=== PATIENT | female | born 1985 | race Caucasian/White ===

== ENCOUNTER 2018-10-15 08:20 | Emergency (ER) | payer MEDICAID ==
[~2018-10-15] VITALS: Ht 167.6 cm; Wt 99.8 kg
[2018-10-15 08:20] VITALS: BP_SYST 131
--- NOTE | 2018-10-15 08:20 | NUR ---
Patient triaged and placed in waiting room. VSS and patient appears in no acute distress at this time. Accompanied by SELF, awaiting available bed, and MD notified of need for MSE.
--- NOTE | 2018-10-15 09:17 | NUR ---
BROUGHT BACK TO BED #2 AND REPORT GIVEN TO LORI
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
--- NOTE | 2018-10-15 09:38 | NUR ---
ER Dr. GARRIDO at bedside examining patient.
[2018-10-15 10:05] VITALS: BP_SYST 131
--- NOTE | 2018-10-15 10:05 | NUR ---
Patient given written and verbal discharge instructions and verbalizes understanding. ER MD discussed with patient the results and treatment provided. Patient in stable condition. ID arm band removed. NO Rx given. Patient educated on pain management and to follow up with PMD. Pain Scale 6/10 TOLERABLE. Opportunity for questions provided and answered. Medication side effect fact sheet provided.
== END 2018-10-15 10:05 | disposition home or self-care (01) ==
LOC: SED 08:20
DX: S29.011A Strain of muscle and tendon of front wall of thorax, initial encounter (principal); X58.XXXA Exposure to other specified factors, initial encounter; Y93.89 Activity, other specified; Y92.89 Other specified places as the place of occurrence of the external cause; Y99.8 Other external cause status
CPT/HCPCS: 71100; 99283

== ENCOUNTER 2018-11-18 14:29 | Emergency (ER) | payer MEDICAID ==
[~2018-11-18] VITALS: Ht 167.6 cm; Wt 100.7 kg
[2018-11-18 14:34] VITALS: BP_SYST 130
[2018-11-18] MEDS ORDERED: IBUPROFEN 400 MG TABLET PO ONE (16:15)
[2018-11-18 17:17] VITALS: BP_SYST 124
[2018-11-20 09:41] LABS: CHLAMYDIA TRACHOMATIS NAA Negative (Negative); NEISSERIA GONORRHOEAE NAA Negative (Negative)
== END 2018-11-18 17:17 | disposition home or self-care (01) ==
LOC: SED 14:29
DX: N76.0 Acute vaginitis (principal); B96.89 Other specified bacterial agents as the cause of diseases classified elsewhere; E11.9 Type 2 diabetes mellitus without complications; J45.909 Unspecified asthma, uncomplicated; Z91.018 Allergy to other foods
CPT/HCPCS: 81002; 81025; 87210-TC; 87491; 87591; 99283

== ENCOUNTER 2018-11-19 20:43 | Emergency (ER) | payer MEDICAID ==
[~2018-11-19] VITALS: Ht 167.6 cm; Wt 99.8 kg
[2018-11-19 20:50] VITALS: BP_SYST 123
[2018-11-19] MEDS ORDERED: NACL 0.9% 1,000 ML IV ONE (21:24)
[2018-11-19] MEDS ORDERED: ONDANSETRON HCL 4 MG/2 ML VIAL IVP ONE (21:30)
[2018-11-19] MEDS ORDERED: KETOROLAC TROMETHAMINE 30 MG VIAL IVP ONE (21:30)
[2018-11-19 21:50] LABS: BILIRUBIN,URINE NEGATIVE (NEGATIVE); CLARITY/URINE HAZY (CLEAR); COLOR,URINE YELLOW (YELLOW); GLUCOSE,URINE 3+ (NEGATIVE); KETONES,URINE NEGATIVE (NEGATIVE); LEUKOCYTE ESTERASE ,URINE NEGATIVE (NEGATIVE); NITRITE, URINE NEGATIVE (NEGATIVE); PROTEIN URINE TRACE (NEGATIVE)
[2018-11-19 22:02] LABS: BASOPHILS % (AUTO) 0.3 % (0.0-2.0); EOSINOPHILS # (AUTO) 0.1 K/uL (0.0-0.4); EOSINOPHILS % (AUTO) 1.6 % (0.0-4.0); HEMATOCRIT 40.6 % (36-48); HEMOGLOBIN 13.5 g/dL (12.0-16.0); LYMPHOCYTES # (AUTO) 1.4 K/uL (1.0-5.5); LYMPHOCYTES % (AUTO) 28.6 % (20.5-51.5); MEAN CORPUSCULAR HEMOGLOBIN 29 pg (27-31); MEAN CORPUSCULAR HGB CONC 33 % (32-36); MEAN CORPUSCULAR VOLUME 86 fL (79.0-98.0); MONOCYTES # (AUTO) 0.4 K/uL (0.0-1.0); MONOCYTES % (AUTO) 7.2 % (1.7-9.3); NEUTROPHILS # (AUTO) 3.1 K/uL (1.8-7.7); NEUTROPHILS % (AUTO) 62.3 % (40.0-70.0); PLATELET COUNT (AUTO) 169 K/uL (130-430); RED BLOOD CELL COUNT(AUTO) 4.74 MIL/uL (4.2-6.2); RED CELL DISTRIBUTION WIDTH 13.5 % (9.0-15.0)
[2018-11-19 22:06] LABS: ALBUMIN 3.3 g/dL (3.4-4.8); CALCIUM 9.1 mg/dL (8.4-11.0); CREATININE 0.77 mg/dL (0.55-1.30); POTASSIUM 3.9 mmol/L (3.5-5.1); TOTAL BILIRUBIN 0.3 mg/dL (0.0-1.0)
[2018-11-19 22:31] LABS: BLOOD, URINE TRACE (NEGATIVE)
[2018-11-19 22:32] LABS: BACTERIA,URINE FEW /HPF (None Seen); MUCUS,URINE None Seen /LPF (None Seen); RBC,URINE 0-3 /HPF (0-3)
[2018-11-19] MEDS ORDERED: DIPHENHYDRAMINE INJ 50 MG/ML VIAL IVP ONE (23:00)
[2018-11-19] MEDS ORDERED: MORPHINE 4 MG/ML INJ. SYRINGE IVP ONE (23:00)
[2018-11-20 01:15] VITALS: BP_SYST 110
== END 2018-11-20 01:15 | disposition home or self-care (01) ==
LOC: SED 20:43
DX: R10.84 Generalized abdominal pain (principal); R11.2 Nausea with vomiting, unspecified; R19.7 Diarrhea, unspecified; J45.909 Unspecified asthma, uncomplicated; E11.9 Type 2 diabetes mellitus without complications; Z91.018 Allergy to other foods; Z90.49 Acquired absence of other specified parts of digestive tract; Z90.89 Acquired absence of other organs
CPT/HCPCS: 36415; 74176; 80053; 81000; 81025; 83690; 85025; 96361; 96374; 96375; 99284; J1200; J1885; J2270; J2405; J7030

== ENCOUNTER 2019-02-13 16:56 | Emergency (ER) | payer MEDICAID ==
[~2019-02-13] VITALS: Ht 167.6 cm; Wt 96.2 kg
[2019-02-13 16:56] VITALS: BP_SYST 127
--- NOTE | 2019-02-13 16:56 | NUR ---
BROUGHT BACK TO BED #8 AND TRIAGED. REPORT GIVEN TO LORI
--- NOTE | 2019-02-13 17:02 | NUR ---
PATIENT CAME IN COMPLAINING OF RED SPOTS ON TOUNGE SINCE LAST SATURDAY. PATIENT COMPLAINING OF 9/10 PAIN. PATIENT STATES SHE CANT EAT ANYTHING BECAUSE OF PAIN. PATIENT ABLE TO DRINK COLD WATER THOUGH AND IS ON HER 4TH JUG OF WATER. PATIENT DENIES SOB, NAUSEA, AND VOMITING. PATIENT IS ALERT AND ORIENTED X4.
--- NOTE | 2019-02-13 17:32 | NUR ---
ER Dr. STEVE at bedside examining patient.
[2019-02-13 18:23] VITALS: BP_SYST 127
--- NOTE | 2019-02-13 18:23 | NUR ---
Patient given written and verbal discharge instructions and verbalizes understanding. ER MD discussed with patient the results and treatment provided. Patient in stable condition. ID arm band removed. Rx of MOTRIN given. Patient educated on pain management and to follow up with PMD. Pain Scale 4/10 TOLERABLE. Opportunity for questions provided and answered. Medication side effect fact sheet provided.
== END 2019-02-13 18:23 | disposition home or self-care (01) ==
LOC: SED 16:56
DX: K12.1 Other forms of stomatitis (principal); J45.909 Unspecified asthma, uncomplicated; E11.9 Type 2 diabetes mellitus without complications; Z91.018 Allergy to other foods
CPT/HCPCS: 82962; 99282

== ENCOUNTER 2019-03-07 06:02 | Emergency (ER) | payer MEDICAID ==
[~2019-03-07] VITALS: Ht 167.6 cm; Wt 96.2 kg
[2019-03-07 06:05] VITALS: BP_SYST 147
--- NOTE | 2019-03-07 06:15 | NUR ---
Patient to ER bed 05 to gown for evaluation. Side rails up.
--- NOTE | 2019-03-07 06:20 | NUR ---
patient arrived AOx4 with c/o abd pain x 2 days. patient was instructed to go to urgent care two days ago but she did not have a sitter for her children. patient stated she took tylenol x 200mg around 7pm last night. patient states it worked well for pain. patient is able to ambulate well without assit. patient has no pain upon palpation. no abd distention at this time. patient is able to pass gas and urine without difficulty at this time. no other complaint or injury at this time.
[2019-03-07] MEDS ORDERED: NACL 0.9% 1,000 ML IV ONE (06:36)
--- NOTE | 2019-03-07 06:38 | NUR ---
ER at bedside examining patient.
[2019-03-07] MEDS ORDERED: ONDANSETRON HCL 4 MG/2 ML VIAL IVP ONE (06:45)
[2019-03-07] MEDS ORDERED: MORPHINE 4 MG/ML INJ. SYRINGE IVP ONE (06:45)
--- NOTE | 2019-03-07 07:00 | NUR ---
# 18 gauge angiocath placed to RAC. Use of asceptic technique. Opsite placed over site. Blood return noted. Blood for lab drawn from site. Flushed with 10 cc of normal saline. No evidence of infiltration noted. Patient tolerated well.
[2019-03-07 07:07] LABS: BASOPHILS % (AUTO) 0.6 % (0.0-2.0); EOSINOPHILS # (AUTO) 0.1 K/uL (0.0-0.4); EOSINOPHILS % (AUTO) 1.5 % (0.0-4.0); HEMOGLOBIN 14.4 g/dL (12.0-16.0); LYMPHOCYTES # (AUTO) 2.8 K/uL (1.0-5.5); LYMPHOCYTES % (AUTO) 42.6 % (20.5-51.5); MEAN CORPUSCULAR HEMOGLOBIN 29 pg (27-31); MEAN CORPUSCULAR HGB CONC 33 % (32-36); MEAN CORPUSCULAR VOLUME 86 fL (79.0-98.0); MONOCYTES # (AUTO) 0.4 K/uL (0.0-1.0); MONOCYTES % (AUTO) 5.7 % (1.7-9.3); NEUTROPHILS # (AUTO) 3.3 K/uL (1.8-7.7); NEUTROPHILS % (AUTO) 49.6 % (40.0-70.0); PLATELET COUNT (AUTO) 189 K/uL (130-430); RED BLOOD CELL COUNT(AUTO) 5.01 MIL/uL (4.2-6.2); RED CELL DISTRIBUTION WIDTH 13.6 % (9.0-15.0); WHITE BLOOD COUNT (AUTO) 6.6 K/uL (4.8-10.8)
--- NOTE | 2019-03-07 07:10 | NUR ---
Medicated per MD orders. IVF infusing with no s/s of infiltration at this time. Will cont to monitor
--- NOTE | 2019-03-07 07:15 | NUR ---
Report received from Yassine Mcleod. Pt states that she has been having diarrhea, last episode was at 0200 today. Pt also arrives with abd pain. No c/o vomitting at the moment. Pt is afebrile. Will continue to monitor.
[2019-03-07 07:19] LABS: BILIRUBIN,URINE NEGATIVE (NEGATIVE); BLOOD, URINE NEGATIVE (NEGATIVE); CLARITY/URINE CLEAR (CLEAR); COLOR,URINE YELLOW (YELLOW); GLUCOSE,URINE 3+ (NEGATIVE); KETONES,URINE NEGATIVE (NEGATIVE); LEUKOCYTE ESTERASE ,URINE NEGATIVE (NEGATIVE); NITRITE, URINE NEGATIVE (NEGATIVE); PH,URINE 5.5 (5.0-8.0); PROTEIN URINE 2+ (NEGATIVE); UROBILINOGEN,URINE 0.2 (0.2-1.0)
[2019-03-07 07:23] LABS: CALCIUM 9.3 mg/dL (8.4-11.0); CREATININE 0.76 mg/dL (0.55-1.30); POTASSIUM 4.1 mmol/L (3.5-5.1)
[2019-03-07 07:28] LABS: ALBUMIN 3.5 g/dL (3.4-4.8); TOTAL BILIRUBIN 0.5 mg/dL (0.0-1.0)
[2019-03-07 07:35] LABS: BACTERIA,URINE FEW /HPF (None Seen); RBC,URINE 0-3 /HPF (0-3)
[2019-03-07 07:36] LABS: MUCUS,URINE 1+ /LPF (None Seen)
--- NOTE | 2019-03-07 08:24 | NUR ---
Tracy redmond in [facility] - 03/07/19 at 0851 by [email or web address] pt is currently in CT scan.
--- NOTE | 2019-03-07 08:24 | NUR ---
pt is currently in .
--- NOTE | 2019-03-07 08:48 | NUR ---
Pt returned from US.
--- NOTE | 2019-03-07 09:00 | NUR ---
pt is going to US again.
--- NOTE | 2019-03-07 09:12 | NUR ---
pt returned from US.
[2019-03-07] MEDS ORDERED: PANTOPRAZOLE SODIUM 40 MG/VIAL (PROTONIX) IVP ONE (09:30)
[2019-03-07] MEDS ORDERED: METOCLOPRAMIDE HCL 10 MG/2 ML VIAL IVP ONE (09:30)
[2019-03-07] MEDS ORDERED: METOCLOPRAMIDE HCL 10 MG/2 ML VIAL ONE (09:36)
[2019-03-07 09:46] VITALS: BP_SYST 147
--- NOTE | 2019-03-07 09:48 | NUR ---
Patient given written and verbal discharge instructions and verbalizes understanding. ER MD discussed with patient the results and treatment provided. Patient in stable condition. ID arm band removed. IV catheter removed intact and dressing applied, no active bleeding. Rx of Zofran 4mg and Prilosec 20mg given. Patient educated on pain management and to follow up with PMD. Pain Scale 3/10.Opportunity for questions provided and answered. Medication side effect fact sheet provided.
== END 2019-03-07 09:48 | disposition home or self-care (01) ==
LOC: SED 06:02
DX: R10.13 Epigastric pain (principal); E11.9 Type 2 diabetes mellitus without complications; J45.909 Unspecified asthma, uncomplicated; Z91.018 Allergy to other foods
CPT/HCPCS: 36415; 76700; 80053; 81000; 81025; 83690; 85025; 87086; 96361; 96374; 96375; 99284; C9113; J2270; J2405; J2765; J7030

== ENCOUNTER 2019-05-03 20:17 | Emergency (ER) | payer MEDICAID ==
[~2019-05-03] VITALS: Ht 167.6 cm; Wt 90.7 kg
[2019-05-03 21:18] VITALS: BP_SYST 121
[2019-05-03] MEDS ORDERED: METF1000 PO (21:46)
--- NOTE | 2019-05-04 01:30 | NUR ---
Pt called back x 3, no answer
--- NOTE | 2019-05-04 01:30 | NUR ---
Patient left without being seen. No further treatment provided. ER MD aware
== END 2019-05-04 01:30 | disposition left against medical advice (07) ==
LOC: SED 20:17
DX: L02.413 Cutaneous abscess of right upper limb (principal); Z53.21 Procedure and treatment not carried out due to patient leaving prior to being seen by health care provider

== ENCOUNTER 2019-05-04 17:37 | Emergency (ER) | payer MEDICAID ==
[~2019-05-04] VITALS: Ht 167.6 cm; Wt 90.7 kg
[~2019-05-04 17:37] MED LIST: METF1000 PO
[2019-05-04 18:01] VITALS: BP_SYST 126
--- NOTE | 2019-05-04 18:40 | NUR ---
Patient to ER bed 06 to gown for evaluation. Side rails up.
--- NOTE | 2019-05-04 18:40 | NUR ---
STALIN Troncoso (PA) at bedside examining patient.
--- NOTE | 2019-05-04 18:42 | NUR ---
Patient arrived in the ED c/o pain, swelling and redness on the right shoulder, draining abscess noted that started a week ago. Patient is a&o x4, respirations even and unlabored, denied any respiratory distress at this time. VS WNL, able to speak in full sentences. INstructed to notify ED staff if symptoms worsen while waiting to be seen. Patient verbalized understanding.
--- NOTE | 2019-05-04 18:51 | NUR ---
Patient given written and verbal discharge instructions and verbalizes understanding. ER MD discussed with patient the results and treatment provided. Patient in stable condition. ID arm band removed. Rx of Bactrim, Keflex and Tylenol given. Patient educated on pain management and to follow up with PMD. Pain Scale 10/10. Opportunity for questions provided and answered. Medication side effect fact sheet provided.
[2019-05-04 18:52] VITALS: BP_SYST 126
== END 2019-05-04 18:52 | disposition home or self-care (01) ==
LOC: SED 17:37
DX: L03.113 Cellulitis of right upper limb (principal); E11.9 Type 2 diabetes mellitus without complications; J45.909 Unspecified asthma, uncomplicated; Z91.018 Allergy to other foods; Z79.899 Other long term (current) drug therapy
CPT/HCPCS: 82962; 99283

== ENCOUNTER 2019-05-23 14:36 | Emergency (ER) | payer MEDICAID ==
[~2019-05-23] VITALS: Ht 167.6 cm; Wt 90.7 kg
[2019-05-23 14:55] VITALS: BP_SYST 119
--- NOTE | 2019-05-23 15:00 | NUR ---
Patient to ER bed 04 for evaluation. Side rails up.
--- NOTE | 2019-05-23 15:10 | NUR ---
Patient arrived via POV, AAOx4, and ambulatory with steady gait. Patient c/c of rectal bleeding x2 for 1 hour. Patient states bright red blood, and present with wiping also. Patient states no history of rectal bleeding. Patient states she has regular bowel movements, and no constipation. Patient states no rectal penetration noted. Patient states she has left distal knee pain that she would like to get checked out, and an insect bite on right shoulder. Patient calm and cooperative. Will continue to follow up and monitor.
--- NOTE | 2019-05-23 15:13 | NUR ---
ER at bedside examining patient.
[2019-05-23 16:00] VITALS: BP_SYST 119
[2019-05-23 16:04] LABS: BASOPHILS # (AUTO) 0.1 K/uL (0.0-0.2); BASOPHILS % (AUTO) 0.5 % (0.0-2.0); EOSINOPHILS # (AUTO) 0.1 K/uL (0.0-0.4); EOSINOPHILS % (AUTO) 1.4 % (0.0-4.0); HEMATOCRIT 39.2 % (36-48); HEMOGLOBIN 13.3 g/dL (12.0-16.0); LYMPHOCYTES # (AUTO) 3.7 K/uL (1.0-5.5); LYMPHOCYTES % (AUTO) 39.4 % (20.5-51.5); MEAN CORPUSCULAR HEMOGLOBIN 29 pg (27-31); MEAN CORPUSCULAR HGB CONC 34 % (32-36); MEAN CORPUSCULAR VOLUME 86 fL (79.0-98.0); MONOCYTES # (AUTO) 0.5 K/uL (0.0-1.0); MONOCYTES % (AUTO) 4.9 % (1.7-9.3); NEUTROPHILS # (AUTO) 5.1 K/uL (1.8-7.7); NEUTROPHILS % (AUTO) 53.8 % (40.0-70.0); PLATELET COUNT (AUTO) 186 K/uL (130-430); RED BLOOD CELL COUNT(AUTO) 4.56 MIL/uL (4.2-6.2); RED CELL DISTRIBUTION WIDTH 13.5 % (9.0-15.0); WHITE BLOOD COUNT (AUTO) 9.5 K/uL (4.8-10.8)
[2019-05-23 16:13] LABS: CALCIUM 9.6 mg/dL (8.4-11.0); CREATININE 0.73 mg/dL (0.55-1.30); POTASSIUM 4.1 mmol/L (3.5-5.1)
[2019-05-23 16:19] LABS: ALBUMIN 3.5 g/dL (3.4-4.8); TOTAL BILIRUBIN 0.2 mg/dL (0.0-1.0)
--- NOTE | 2019-05-23 17:00 | NUR ---
Patient given written and verbal discharge instructions and verbalizes understanding. ER MD discussed with patient the results and treatment provided. Patient in stable condition. ID arm band removed. Rx of Anusol HC suppositories given. Patient educated on pain management and to follow up with PMD. Pain Scale 2/10. Opportunity for questions provided and answered. Medication side effect fact sheet provided.
== END 2019-05-23 17:00 | disposition home or self-care (01) ==
LOC: SED 14:36
DX: K64.4 Residual hemorrhoidal skin tags (principal); J45.909 Unspecified asthma, uncomplicated; E11.9 Type 2 diabetes mellitus without complications; Z91.018 Allergy to other foods; Z79.84 Long term (current) use of oral hypoglycemic drugs; Z90.49 Acquired absence of other specified parts of digestive tract
CPT/HCPCS: 36415; 80053; 83690-TC; 85025; 99283

== ENCOUNTER 2019-07-26 18:11 | Emergency (ER) | payer MEDICAID ==
[~2019-07-26] VITALS: Ht 167.6 cm; Wt 95.3 kg
[2019-07-26 18:27] VITALS: BP_SYST 130
--- NOTE | 2019-07-26 18:32 | NUR ---
Patient to ER bed 2 to gown for evaluation. Side rails up.
--- NOTE | 2019-07-26 18:35 | NUR ---
pt present to ED c/o asthma exacerbation.
--- NOTE | 2019-07-26 18:36 | NUR ---
ER at bedside examining patient.
[2019-07-26] MEDS ORDERED: IPRATROPIUM BROM 0.5 MG/2.5 ML VIAL.NEB (ATROVENT) INH ONE (18:45)
[2019-07-26] MEDS ORDERED: methylPREDNISolone SOD SUCC/PF 62.5 MG/ML VIAL IVP ONE (18:45)
[2019-07-26] MEDS ORDERED: ALBUTEROL SULFATE 0.083% 2.5 MG/3 ML VIAL.NEB INH ONE (18:45)
--- NOTE | 2019-07-26 19:30 | NUR ---
Patient given written and verbal discharge instructions and verbalizes understanding. ER MD Marcelino discussed with patient the results and treatment provided. Patient in stable condition. ID arm band removed. Rx of prednisone, zithromax, and albuterol given. Patient educated on pain management and to follow up with PMD. Pain Scale 0/10. Opportunity for questions provided and answered. Medication side effect fact sheet provided.
[2019-07-26 19:49] VITALS: BP_SYST 128
== END 2019-07-26 19:30 | disposition home or self-care (01) ==
LOC: SED 18:11
DX: J45.901 Unspecified asthma with (acute) exacerbation (principal); E11.9 Type 2 diabetes mellitus without complications; Z91.018 Allergy to other foods
CPT/HCPCS: 94640; 96374; 99283; J2930; J7613

== ENCOUNTER 2019-07-28 18:34 | Emergency (ER) | payer MEDICAID ==
[~2019-07-28] VITALS: Ht 167.6 cm; Wt 95.3 kg
[2019-07-28 19:34] VITALS: BP_SYST 121
--- NOTE | 2019-07-28 20:20 | NUR ---
Patient to ER bed 08 for evaluation. Side rails up.
[2019-07-28 20:21] LABS: BASOPHILS % (AUTO) 0.3 % (0.0-2.0); EOSINOPHILS # (AUTO) 0.1 K/uL (0.0-0.4); EOSINOPHILS % (AUTO) 0.4 % (0.0-4.0); HEMATOCRIT 43.2 % (36-48); HEMOGLOBIN 14.2 g/dL (12.0-16.0); LYMPHOCYTES # (AUTO) 4.7 K/uL (1.0-5.5); MEAN CORPUSCULAR HEMOGLOBIN 28 pg (27-31); MEAN CORPUSCULAR HGB CONC 33 % (32-36); MEAN CORPUSCULAR VOLUME 86 fL (79.0-98.0); MONOCYTES # (AUTO) 0.7 K/uL (0.0-1.0); MONOCYTES % (AUTO) 5.2 % (1.7-9.3); NEUTROPHILS # (AUTO) 7.6 K/uL (1.8-7.7); NEUTROPHILS % (AUTO) 58.1 % (40.0-70.0); PLATELET COUNT (AUTO) 221 K/uL (130-430); RED BLOOD CELL COUNT(AUTO) 5.03 MIL/uL (4.2-6.2); RED CELL DISTRIBUTION WIDTH 13.3 % (9.0-15.0); WHITE BLOOD COUNT (AUTO) 13.1 K/uL (4.8-10.8)
--- NOTE | 2019-07-28 20:21 | NUR ---
Pt AAOx4 ambulated into ED c/o diarrhea and vomiting x 2 days ith sore throat. Denies SOB/blurred vision/CP. Skin pink dry and warm, breathing even and unlabored. No other injuries/complaints per pt/noted. Will continue to monitor.
[2019-07-28 20:22] LABS: CALCIUM 9.1 mg/dL (8.4-11.0); CREATININE 0.69 mg/dL (0.55-1.30); POTASSIUM 3.9 mmol/L (3.5-5.1)
--- NOTE | 2019-07-28 20:22 | NUR ---
ER Dr. Marcelino at bedside examining patient.
[2019-07-28 20:33] LABS: ALBUMIN 3.7 g/dL (3.4-4.8); TOTAL BILIRUBIN 0.2 mg/dL (0.0-1.0)
[2019-07-28] MEDS ORDERED: NACL 0.9% 1,000 ML IV ONE (20:34)
[2019-07-28] MEDS ORDERED: ONDANSETRON HCL 4 MG/2 ML VIAL IVP ONE (20:45)
[2019-07-28] MEDS ORDERED: NS 1000 ML IV.SOLN IV ONE (20:45)
[2019-07-28 21:06] LABS: AMYLASE 16 U/L (0-100); LIPASE 161 U/L (73-393)
[2019-07-28 21:10] LABS: PROTHROMBIN TIME 9.9 SECS (9.5-12.5)
[2019-07-28 22:01] LABS: BILIRUBIN,URINE NEGATIVE (NEGATIVE); BLOOD, URINE NEGATIVE (NEGATIVE); COLOR,URINE YELLOW (YELLOW); GLUCOSE,URINE 3+ (NEGATIVE); KETONES,URINE NEGATIVE (NEGATIVE); LEUKOCYTE ESTERASE ,URINE NEGATIVE (NEGATIVE); NITRITE, URINE POSITIVE (NEGATIVE); PH,URINE 5.5 (5.0-8.0); PROTEIN URINE 1+ (NEGATIVE); UROBILINOGEN,URINE 0.2 (0.2-1.0)
[2019-07-28 22:18] LABS: CLARITY/URINE HAZY (CLEAR)
--- NOTE | 2019-07-28 22:20 | NUR ---
Patient given written and verbal discharge instructions and verbalizes understanding. ER MD Marcelino discussed with patient the results and treatment provided. Patient in stable condition. ID arm band removed. IV catheter removed intact and dressing applied, no active bleeding. Rx of Lomotil, Zofran, Tylenol given. Patient educated on pain management and to follow up with PMD. Pain Scale 0. Opportunity for questions provided and answered. Medication side effect fact sheet provided.
[2019-07-28 22:21] VITALS: BP_SYST 114
[2019-07-28 22:24] LABS: BACTERIA,URINE MANY /HPF (None Seen); MUCUS,URINE None Seen /LPF (None Seen); RBC,URINE NONE SEEN /HPF (0-3); WBC,URINE 0-3 /HPF (0-3)
== END 2019-07-28 22:21 | disposition home or self-care (01) ==
LOC: SED 18:34
DX: K52.9 Noninfective gastroenteritis and colitis, unspecified (principal); J45.909 Unspecified asthma, uncomplicated; E11.9 Type 2 diabetes mellitus without complications; Z91.018 Allergy to other foods; Z79.84 Long term (current) use of oral hypoglycemic drugs
CPT/HCPCS: 36415; 80053; 81000; 82150; 83605; 83690; 84484; 85025; 85610; 85730; 87040; 87086; 96361; 96374; 99283; J2405; J7030

== ENCOUNTER 2019-09-13 15:23 | Emergency (ER) | payer MEDICAID ==
[~2019-09-13] VITALS: Ht 167.6 cm; Wt 90.7 kg
[2019-09-13 15:47] VITALS: BP_SYST 124
[2019-09-13] MEDS ORDERED: IPRATROPIUM/ALBUTEROL SULFATE 3 ML AMPUL.NEB (DUONEB) INH ONE (16:00)
[2019-09-13 18:03] VITALS: BP_SYST 121
== END 2019-09-13 18:05 | disposition home or self-care (01) ==
LOC: SED 15:23
DX: J02.9 Acute pharyngitis, unspecified (principal); H00.012 Hordeolum externum right lower eyelid; E11.9 Type 2 diabetes mellitus without complications; J45.909 Unspecified asthma, uncomplicated; R03.0 Elevated blood-pressure reading, without diagnosis of hypertension; Z91.018 Allergy to other foods
CPT/HCPCS: 36415; 71045; 86403; 87081; 94640; 99284

== ENCOUNTER 2019-09-16 16:27 | Inpatient (IN) | payer MEDICAID, SELFPAY ==
[~2019-09-16] VITALS: Ht 167.6 cm; Wt 95.7 kg
[2019-09-16 16:27] VITALS: BP_SYST 157
[2019-09-16] MEDS ORDERED: IPRATROPIUM/ALBUTEROL SULFATE 3 ML AMPUL.NEB (DUONEB) INH ONE (17:00)
[2019-09-16] MEDS ORDERED: methylPREDNISolone SOD SUCC/PF 62.5 MG/ML VIAL IVP ONE (17:00)
[2019-09-16] MEDS ORDERED: NACL 0.9% 1,000 ML IV ONE ×2 (17:00→18:00)
[2019-09-16] MEDS ORDERED: INSULIN REGULAR, HUMAN 10 UNITS/0.1 ML INJ IVP ONE ×2 (17:15)
[2019-09-16 17:40] LABS: BASOPHILS % (AUTO) 0.4 % (0.0-2.0); EOSINOPHILS % (AUTO) 0.5 % (0.0-4.0); HEMATOCRIT 42.6 % (36-48); HEMOGLOBIN 14.4 g/dL (12.0-16.0); LYMPHOCYTES # (AUTO) 1.9 K/uL (1.0-5.5); LYMPHOCYTES % (AUTO) 24.5 % (20.5-51.5); MEAN CORPUSCULAR HEMOGLOBIN 29 pg (27-31); MEAN CORPUSCULAR HGB CONC 34 % (32-36); MEAN CORPUSCULAR VOLUME 85 fL (79.0-98.0); MONOCYTES # (AUTO) 0.2 K/uL (0.0-1.0); MONOCYTES % (AUTO) 2.5 % (1.7-9.3); NEUTROPHILS # (AUTO) 5.5 K/uL (1.8-7.7); NEUTROPHILS % (AUTO) 72.1 % (40.0-70.0); PLATELET COUNT (AUTO) 171 K/uL (130-430); RED BLOOD CELL COUNT(AUTO) 4.99 MIL/uL (4.2-6.2); RED CELL DISTRIBUTION WIDTH 13.5 % (9.0-15.0); WHITE BLOOD COUNT (AUTO) 7.7 K/uL (4.8-10.8)
[2019-09-16] MEDS ORDERED: KETOROLAC TROMETHAMINE 30 MG VIAL IVP ONE (17:45)
[2019-09-16 17:57] LABS: CALCIUM 8.9 mg/dL (8.4-11.0); CREATININE 0.86 mg/dL (0.55-1.30); POTASSIUM 4.3 mmol/L (3.5-5.1)
[2019-09-16 18:06] LABS: ALBUMIN 3.4 g/dL (3.4-4.8); TOTAL BILIRUBIN 0.3 mg/dL (0.0-1.0)
[2019-09-16 19:02] LABS: BILIRUBIN,URINE NEGATIVE (NEGATIVE); BLOOD, URINE NEGATIVE (NEGATIVE); CLARITY/URINE CLEAR (CLEAR); GLUCOSE,URINE 3+ (NEGATIVE); KETONES,URINE NEGATIVE (NEGATIVE); LEUKOCYTE ESTERASE ,URINE NEGATIVE (NEGATIVE); NITRITE, URINE NEGATIVE (NEGATIVE); PROTEIN URINE NEGATIVE (NEGATIVE); UROBILINOGEN,URINE 0.2 (0.2-1.0)
[2019-09-16 19:09] LABS: COLOR,URINE STRAW (YELLOW)
[2019-09-16 19:13] LABS: BACTERIA,URINE FEW /HPF (None Seen); MUCUS,URINE None Seen /LPF (None Seen); RBC,URINE 0-3 /HPF (0-3); WBC,URINE 0-3 /HPF (0-3)
[2019-09-16 21:59] VITALS: BP_SYST 119
[2019-09-16] MEDS ORDERED: ALBUTEROL SULFATE 0.083% 2.5 MG/3 ML VIAL.NEB INH PRN (23:00)
[2019-09-16] MEDS: ALBUTEROL MDI INHALATION 8 GM INH INH SCH (23:00)
[2019-09-16] MEDS ORDERED: ONDANSETRON HCL 4 MG/2 ML VIAL IVP PRN (23:00)
[2019-09-16] MEDS ORDERED: AZITHROMYCIN 500 MG in NS 250 ML IV SCH (23:00)
[2019-09-16] MEDS: INSULIN REGULAR, HUMAN 100 UNITS/ML, 10 ML VIAL (humuLIN R) SUBCUT PRN (23:26)
[2019-09-16] MEDS: NACL 0.9% 1,000 ML IV SCH (23:32)
[2019-09-16] MEDS ORDERED: cefTRIAXone 1 GM VIAL ONE (23:33)
[2019-09-16] MEDS ORDERED: AZITHROMYCIN 500 MG/VIAL (ZITHROMAX) IV ONE (23:33)
[2019-09-16] MEDS: cefTRIAXone 1 GM IVPB PREMIX 50 ML IV SCH (23:42)
[2019-09-17] VITALS (7 sets, daily range): BP systolic 107–121
[2019-09-17] MEDS: HYDROcodone/ACETAMIN 5-325 MG TAB (NORCO/ VICODIN) PO PRN ×2 (02:29→12:09)
[2019-09-17] MEDS ORDERED: guaiFENesin 200 MG/CODEINE 20 MG/ 10 ML UDC PO PRN (03:45)
[2019-09-17] MEDS: INSULIN REGULAR, HUMAN 100 UNITS/ML, 10 ML VIAL (humuLIN R) SUBCUT PRN ×4 (06:52→21:00)
[2019-09-17 06:59] LABS: BASOPHILS % (AUTO) 0.3 % (0.0-2.0); HEMATOCRIT 39.3 % (36-48); HEMOGLOBIN 13.1 g/dL (12.0-16.0); LYMPHOCYTES # (AUTO) 1.5 K/uL (1.0-5.5); LYMPHOCYTES % (AUTO) 12.5 % (20.5-51.5); MEAN CORPUSCULAR HEMOGLOBIN 29 pg (27-31); MEAN CORPUSCULAR HGB CONC 33 % (32-36); MEAN CORPUSCULAR VOLUME 85 fL (79.0-98.0); MONOCYTES # (AUTO) 0.3 K/uL (0.0-1.0); MONOCYTES % (AUTO) 2.2 % (1.7-9.3); NEUTROPHILS # (AUTO) 9.9 K/uL (1.8-7.7); PLATELET COUNT (AUTO) 164 K/uL (130-430); RED CELL DISTRIBUTION WIDTH 13.8 % (9.0-15.0); WHITE BLOOD COUNT (AUTO) 11.7 K/uL (4.8-10.8)
[2019-09-17 07:26] LABS: CALCIUM 8.8 mg/dL (8.4-11.0); CREATININE 0.64 mg/dL (0.55-1.30); TOTAL BILIRUBIN 0.4 mg/dL (0.0-1.0)
[2019-09-17] MEDS: ALBUTEROL MDI INHALATION 8 GM INH INH SCH ×4 (09:00→21:00)
[2019-09-17] MEDS: NACL 0.9% 1,000 ML IV SCH (12:17)
[2019-09-17] MEDS: cefTRIAXone 1 GM IVPB PREMIX 50 ML IV SCH (22:59)
[2019-09-17] MEDS: MECLIZINE HCL 25 MG TABLET (ANITVERT) PO PRN (22:59)
[2019-09-17] MEDS: AZITHROMYCIN 250 MG in NS 250 ML IV SCH (23:52)
[2019-09-18] VITALS: BP_SYST 118
[2019-09-18] MEDS: NACL 0.9% 1,000 ML IV SCH ×2 (01:31→10:58)
[2019-09-18] MEDS: INSULIN REGULAR, HUMAN 100 UNITS/ML, 10 ML VIAL (humuLIN R) SUBCUT PRN ×4 (06:07→20:45)
[2019-09-18 08:00] VITALS: BP_SYST 117
[2019-09-18] MEDS: ALBUTEROL MDI INHALATION 8 GM INH INH SCH ×2 (09:00→13:00)
[2019-09-18 11:25] VITALS: BP_SYST 107
[2019-09-18] MEDS: MECLIZINE HCL 25 MG TABLET (ANITVERT) PO PRN (13:27)
[2019-09-18] MEDS: HYDROcodone/ACETAMIN 5-325 MG TAB (NORCO/ VICODIN) PO PRN (16:03)
[2019-09-18 16:50] VITALS: BP_SYST 121
[2019-09-18 19:00] VITALS: BP_SYST 120
[2019-09-18 20:00] VITALS: BP_SYST 120
[2019-09-18] MEDS: cefTRIAXone 1 GM IVPB PREMIX 50 ML IV SCH (23:29)
[2019-09-18] MEDS: AZITHROMYCIN 250 MG in NS 250 ML IV SCH (23:29)
[2019-09-19] VITALS (7 sets, daily range): BP systolic 103–134
[2019-09-19] MEDS: NACL 0.9% 1,000 ML IV SCH (04:11)
[2019-09-19] MEDS: INSULIN REGULAR, HUMAN 100 UNITS/ML, 10 ML VIAL (humuLIN R) SUBCUT PRN ×2 (05:47→12:13)
[2019-09-19 08:11] LABS: FERRITIN 56 ng/mL (15-150)
[2019-09-19] MEDS: HYDROcodone/ACETAMIN 5-325 MG TAB (NORCO/ VICODIN) PO PRN (09:24)
[2019-09-19] MEDS ORDERED: AMOX-423 PO (11:01)
[2019-09-19] MEDS: MECLIZINE HCL 25 MG TABLET (ANITVERT) PO PRN (12:00)
[2019-09-21 20:19] LABS: MYCOPLASMA PNEUMONIAE IgM <770 U/mL (0-769)
== END 2019-09-19 16:26 | disposition home or self-care (01) | DRG 420 ==
LOC: SED 16:27 → STU 19:23 → SMU 09-17 19:24
PROVIDERS: ADMIT Internal Medicine Hospice and Palliative Medicine; ATTEND Internal Medicine Hospice and Palliative Medicine
DX: E11.00 Type 2 diabetes mellitus with hyperosmolarity without nonketotic hyperglycemic-hyperosmolar coma (NKHHC) (principal); R65.10 Systemic inflammatory response syndrome (SIRS) of non-infectious origin without acute organ dysfunction; J45.901 Unspecified asthma with (acute) exacerbation; J20.9 Acute bronchitis, unspecified; E87.1 Hypo-osmolality and hyponatremia; E11.65 Type 2 diabetes mellitus with hyperglycemia; Z78.9 Other specified health status; Z83.3 Family history of diabetes mellitus; Z79.899 Other long term (current) drug therapy; Z91.018 Allergy to other foods
CPT/HCPCS: 36415; 71045; 80053; 81000-TC; 82728; 82962; 83605; 85025; 85651-TC; 86710; 86738; 87040-TC; 87086; 87449; 93005; 94640; 96361; 96374; 96375; 99285; G0378; J0456; J0696; J1815; J1885; J2930; J7030; J7050; J7613; J8597; U0002

== ENCOUNTER 2019-11-23 10:01 | Emergency (ER) | payer MEDICAID, SELFPAY ==
[~2019-11-23] VITALS: Ht 167.6 cm; Wt 72.6 kg
[~2019-11-23 10:01] MED LIST changes: +AMOX-423 PO
[2019-11-23 10:24] VITALS: BP_SYST 129
--- NOTE | 2019-11-23 10:24 | NUR ---
Patient to ER bed 03 to gown for evaluation. Side rails up.
--- NOTE | 2019-11-23 10:25 | NUR ---
Patient arrived in the ED c/o Left mid abdominal pain with nausea that started 2 days ago. LBM 11/22/19, LMP 11/19/19. Denied any chest pain or shortness of breath. Denied any fevers, chills, or vomiting. Patient is alert and oriented x4, respirations even and unlabored, speaking in full sentences, and ambulating with a steady gait. VSS, pain level 7/10. Informed of the approximate wait time. Instructed to notify ED staff for any changes in condition or worsening of symptoms. Patient verbalized understanding.
--- NOTE | 2019-11-23 10:26 | NUR ---
ER Dr. Young at bedside examining patient.
--- NOTE | 2019-11-23 10:29 | NUR ---
Patient ambulated to the bathroom with a steady gait. Urine specimen collected as ordered by Dr. Young.
[2019-11-23] MEDS ORDERED: ONDANSETRON 4 MG ODT TAB PO ONE (10:30)
[2019-11-23] MEDS ORDERED: KETOROLAC TROMETHAMINE 60 MG/2 ML VIAL IM ONE (10:30)
--- NOTE | 2019-11-23 10:41 | NUR ---
Patient taken to X-ray as ordered by Dr. Young, in stable condition.
[2019-11-23 10:46] LABS: BASOPHILS % (AUTO) 0.8 % (0.0-2.0); EOSINOPHILS # (AUTO) 0.2 K/uL (0.0-0.4); HEMOGLOBIN 13.7 g/dL (12.0-16.0); LYMPHOCYTES # (AUTO) 2.7 K/uL (1.0-5.5); LYMPHOCYTES % (AUTO) 42.6 % (20.5-51.5); MEAN CORPUSCULAR HEMOGLOBIN 28 pg (27-31); MEAN CORPUSCULAR HGB CONC 33 % (32-36); MEAN CORPUSCULAR VOLUME 85 fL (79.0-98.0); MONOCYTES # (AUTO) 0.3 K/uL (0.0-1.0); MONOCYTES % (AUTO) 4.5 % (1.7-9.3); NEUTROPHILS # (AUTO) 3.1 K/uL (1.8-7.7); NEUTROPHILS % (AUTO) 49.1 % (40.0-70.0); PLATELET COUNT (AUTO) 178 K/uL (130-430); RED BLOOD CELL COUNT(AUTO) 4.85 MIL/uL (4.2-6.2); RED CELL DISTRIBUTION WIDTH 13.3 % (9.0-15.0); WHITE BLOOD COUNT (AUTO) 6.3 K/uL (4.8-10.8)
--- NOTE | 2019-11-23 10:51 | NUR ---
Patient is back from X-ray, in stable condition.
--- NOTE | 2019-11-23 10:52 | NUR ---
Administered Zofran PO and Toradol IM as ordered by Dr. Young. Patient tolerated the medications well. See eMAR for details.
[2019-11-23 11:16] LABS: CREATININE 0.84 mg/dL (0.55-1.30); POTASSIUM 3.8 mmol/L (3.5-5.1)
[2019-11-23 11:20] LABS: ALBUMIN 3.6 g/dL (3.4-4.8); TOTAL BILIRUBIN 0.4 mg/dL (0.0-1.0)
--- NOTE | 2019-11-23 11:26 | NUR ---
Medication reconciliation done.
[2019-11-23 11:43] VITALS: BP_SYST 129
--- NOTE | 2019-11-23 11:43 | NUR ---
Patient given written and verbal discharge instructions and verbalizes understanding. ER MD discussed with patient the results and treatment provided. Patient in stable condition. ID arm band removed. Rx of Mag Sulfate and Tramadol given. Patient educated on pain management and to follow up with PMD. Pain Scale 0/10. Opportunity for questions provided and answered. Medication side effect fact sheet provided.
== END 2019-11-23 11:43 | disposition home or self-care (01) ==
LOC: SED 10:01
DX: R10.12 Left upper quadrant pain (principal); J45.909 Unspecified asthma, uncomplicated; E11.9 Type 2 diabetes mellitus without complications; Z91.018 Allergy to other foods
CPT/HCPCS: 36415; 74018; 80053; 81002; 81025; 83690; 85025; 96372; 99284; J1885; Q0162

== ENCOUNTER 2019-12-02 16:58 | Emergency (ER) | payer MEDICAID, SELFPAY ==
[~2019-12-02] VITALS: Ht 162.6 cm; Wt 73.9 kg
[2019-12-02 17:06] VITALS: BP_SYST 149
[2019-12-02 17:49] LABS: BILIRUBIN,URINE NEGATIVE (NEGATIVE); BLOOD, URINE NEGATIVE (NEGATIVE); CLARITY/URINE CLEAR (CLEAR); COLOR,URINE YELLOW (YELLOW); GLUCOSE,URINE 3+ (NEGATIVE); KETONES,URINE NEGATIVE (NEGATIVE); LEUKOCYTE ESTERASE ,URINE NEGATIVE (NEGATIVE); NITRITE, URINE NEGATIVE (NEGATIVE); PROTEIN URINE 1+ (NEGATIVE); UROBILINOGEN,URINE 0.2 (0.2-1.0)
[2019-12-02 18:30] VITALS: BP_SYST 149
[2019-12-02 18:50] LABS: BACTERIA,URINE FEW /HPF (None Seen); MUCUS,URINE 1+ /LPF (None Seen); RBC,URINE 0-3 /HPF (0-3); WBC,URINE 0-3 /HPF (0-3)
== END 2019-12-02 18:30 | disposition home or self-care (01) ==
LOC: EEVIPCON 16:58 → SED 16:58
DX: J02.8 Acute pharyngitis due to other specified organisms (principal); B97.89 Other viral agents as the cause of diseases classified elsewhere; J45.909 Unspecified asthma, uncomplicated; E11.9 Type 2 diabetes mellitus without complications; Z91.018 Allergy to other foods
CPT/HCPCS: 36415; 81000-TC; 86403; 87081; 99283

== ENCOUNTER 2020-01-02 14:24 | Emergency (ER) | payer MEDICAID, SELFPAY ==
[~2020-01-02] VITALS: Ht 167.6 cm; Wt 92.1 kg
[2020-01-02 14:44] VITALS: BP_SYST 117
[2020-01-02 16:13] LABS: BASOPHILS % (AUTO) 0.6 % (0.0-2.0); EOSINOPHILS # (AUTO) 0.2 K/uL (0.0-0.4); EOSINOPHILS % (AUTO) 1.9 % (0.0-4.0); HEMATOCRIT 42.2 % (36-48); HEMOGLOBIN 13.6 g/dL (12.0-16.0); LYMPHOCYTES # (AUTO) 3.2 K/uL (1.0-5.5); LYMPHOCYTES % (AUTO) 38.7 % (20.5-51.5); MEAN CORPUSCULAR HEMOGLOBIN 28 pg (27-31); MEAN CORPUSCULAR HGB CONC 32 % (32-36); MEAN CORPUSCULAR VOLUME 86 fL (79.0-98.0); MONOCYTES # (AUTO) 0.5 K/uL (0.0-1.0); MONOCYTES % (AUTO) 5.5 % (1.7-9.3); NEUTROPHILS # (AUTO) 4.5 K/uL (1.8-7.7); NEUTROPHILS % (AUTO) 53.3 % (40.0-70.0); PLATELET COUNT (AUTO) 176 K/uL (130-430); RED BLOOD CELL COUNT(AUTO) 4.89 MIL/uL (4.2-6.2); RED CELL DISTRIBUTION WIDTH 13.4 % (9.0-15.0); WHITE BLOOD COUNT (AUTO) 8.4 K/uL (4.8-10.8)
[2020-01-02 16:19] LABS: CALCIUM 9.2 mg/dL (8.4-11.0); CREATININE 0.86 mg/dL (0.55-1.30); POTASSIUM 4.1 mmol/L (3.5-5.1)
[2020-01-02 16:21] LABS: PROTHROMBIN TIME 9.9 SECS (9.5-12.5)
[2020-01-02 16:24] LABS: ALBUMIN 3.3 g/dL (3.4-4.8); TOTAL BILIRUBIN 0.2 mg/dL (0.0-1.0)
[2020-01-02 16:26] LABS: BILIRUBIN,URINE NEGATIVE (NEGATIVE); BLOOD, URINE NEGATIVE (NEGATIVE); CLARITY/URINE HAZY (CLEAR); COLOR,URINE YELLOW (YELLOW); GLUCOSE,URINE 3+ (NEGATIVE); KETONES,URINE NEGATIVE (NEGATIVE); LEUKOCYTE ESTERASE ,URINE NEGATIVE (NEGATIVE); NITRITE, URINE NEGATIVE (NEGATIVE); PROTEIN URINE TRACE (NEGATIVE); UROBILINOGEN,URINE 0.2 (0.2-1.0)
[2020-01-02 16:28] LABS: BACTERIA,URINE FEW /HPF (None Seen); MUCUS,URINE None Seen /LPF (None Seen); RBC,URINE NONE SEEN /HPF (0-3); WBC,URINE 0-3 /HPF (0-3)
[2020-01-02 16:31] LABS: BARBITURATE, URINE NEGATIVE (NEG <=200); BENZODIAZEPINE, URINE NEGATIVE (NEG <=150); CANNABINOID, URINE NEGATIVE (NEG <=50); COCAINE, URINE NEGATIVE (NEG <=150); METHAMPHETAMINES SCREEN,URINE NEGATIVE (NEG <=500); OPIATE, URINE NEGATIVE (NEG <=100); PHENCYCLIDINE SCREEN,URINE NEGATIVE (NEG <=25); UR TRICYCLIC ANTIDEPRESSANTS NEGATIVE (NEG <=300); URINE AMPHETAMINE NEGATIVE (NEG <=500); URINE METHADONE NEGATIVE (NEG <=200); URINE OXYCODONE SCREEN NEGATIVE (NEG <=100); URINE PROPOXYPHENE SCREEN NEGATIVE (NEG <=300)
[2020-01-02 18:42] VITALS: BP_SYST 117
== END 2020-01-02 18:42 | disposition home or self-care (01) ==
LOC: SED 14:24
DX: R20.2 Paresthesia of skin (principal)
CPT/HCPCS: 36415; 70450-TC; 71045; 80053; 80307; 81000-TC; 81025; 84484; 85025; 85610-TC; 85730-TC; 93005; 99285

== ENCOUNTER 2020-01-22 22:37 | Emergency (ER) | payer MEDICAID ==
[~2020-01-22] VITALS: Ht 167.6 cm; Wt 92.1 kg
[2020-01-22 22:37] VITALS: BP_SYST 127
[2020-01-22] MEDS ORDERED: IPRATROPIUM/ALBUTEROL SULFATE 3 ML AMPUL.NEB (DUONEB) INH ONE (23:00)
[2020-01-22] MEDS ORDERED: methylPREDNISolone SOD SUCC/PF 62.5 MG/ML VIAL IM ONE (23:00)
[2020-01-22] MEDS ORDERED: IPRATROPIUM/ALBUTEROL SULFATE 3 ML AMPUL.NEB (DUONEB) ONE (23:10)
[2020-01-22 23:50] VITALS: BP_SYST 122
== END 2020-01-22 23:50 | disposition home or self-care (01) ==
LOC: SED 22:37
DX: J45.901 Unspecified asthma with (acute) exacerbation (principal); J45.909 Unspecified asthma, uncomplicated; E11.9 Type 2 diabetes mellitus without complications; F41.9 Anxiety disorder, unspecified; Z91.018 Allergy to other foods
CPT/HCPCS: 71045; 96372; 99283; J2930; 94640

== ENCOUNTER 2020-02-06 15:21 | Emergency (ER) | payer MEDICAID ==
[~2020-02-06] VITALS: Ht 167.6 cm; Wt 96.2 kg
[2020-02-06 15:27] VITALS: BP_SYST 143
[2020-02-06 16:11] VITALS: BP_SYST 143
== END 2020-02-06 16:14 | disposition home or self-care (01) ==
LOC: EEVIPCON 15:21 → SED 15:21
DX: M77.9 Enthesopathy, unspecified (principal); M25.522 Pain in left elbow; J45.909 Unspecified asthma, uncomplicated; E11.9 Type 2 diabetes mellitus without complications; F41.9 Anxiety disorder, unspecified; Z91.018 Allergy to other foods
CPT/HCPCS: 99283

== ENCOUNTER 2020-03-22 15:32 | Inpatient (IN) | payer MEDICAID ==
[~2020-03-22] VITALS: Ht 167.6 cm; Wt 98.9 kg
[2020-03-22 15:47] VITALS: BP_SYST 147
--- NOTE | 2020-03-22 15:47 | NUR ---
Patient to ER bed 07 to gown for evaluation. Side rails up. Report given to SUSAN Moraes
--- NOTE | 2020-03-22 15:51 | NUR ---
Patient brought in ambulatory, AOx4 complaining of headache with light sensitivity x 3 days also complaining of nausea, vomiting and diarrhea with generalized abdominal pain . Patient denies an COVID exposure. Pain 10/10. No other complaints/injuries per patient or as noted. Will continue to monitor.
[2020-03-22] MEDS ORDERED: KCL 20 mEq in 100 mL (PREMIX) 100 ML IV ONE (16:00)
[2020-03-22] MEDS ORDERED: ONDANSETRON HCL 4 MG/2 ML VIAL IVP ONE ×2 (16:00→17:45)
[2020-03-22] MEDS ORDERED: NACL 0.9% 1,000 ML IV ONE (16:00)
--- NOTE | 2020-03-22 16:14 | NUR ---
[place] of care received at this time, pt A&Ox4, respirations even and unlabored .
--- NOTE | 2020-03-22 16:14 | NUR ---
# 20 gauge angiocath placed to LAC. Use of asceptic technique. Opsite placed over site. Blood return noted. Blood for lab drawn from site. Flushed with 10 cc of normal saline. No evidence of infiltration noted. Patient tolerated well.
--- NOTE | 2020-03-22 16:15 | NUR ---
Medicated per MD orders. IVF infusing with no s/s of infiltration at this time. Will cont to monitor
[2020-03-22 16:26] LABS: BASOPHILS # (AUTO) 0.1 K/uL (0.0-0.2); BASOPHILS % (AUTO) 0.8 % (0.0-2.0); EOSINOPHILS # (AUTO) 0.1 K/uL (0.0-0.4); EOSINOPHILS % (AUTO) 1.8 % (0.0-4.0); HEMATOCRIT 43.3 % (36-48); HEMOGLOBIN 14.6 g/dL (12.0-16.0); LYMPHOCYTES # (AUTO) 3.2 K/uL (1.0-5.5); LYMPHOCYTES % (AUTO) 38.7 % (20.5-51.5); MEAN CORPUSCULAR HEMOGLOBIN 28 pg (27-31); MEAN CORPUSCULAR HGB CONC 34 % (32-36); MEAN CORPUSCULAR VOLUME 85 fL (79.0-98.0); MONOCYTES # (AUTO) 0.4 K/uL (0.0-1.0); MONOCYTES % (AUTO) 4.7 % (1.7-9.3); NEUTROPHILS # (AUTO) 4.5 K/uL (1.8-7.7); PLATELET COUNT (AUTO) 175 K/uL (130-430); RED BLOOD CELL COUNT(AUTO) 5.12 MIL/uL (4.2-6.2); RED CELL DISTRIBUTION WIDTH 13.1 % (9.0-15.0); WHITE BLOOD COUNT (AUTO) 8.4 K/uL (4.8-10.8)
[2020-03-22] MEDS ORDERED: KETOROLAC TROMETHAMINE 30 MG VIAL IVP ONE (16:30)
[2020-03-22 16:35] LABS: CALCIUM 9.1 mg/dL (8.4-11.0); CREATININE 0.78 mg/dL (0.55-1.30)
[2020-03-22 16:41] LABS: ALBUMIN 3.5 g/dL (3.4-4.8); TOTAL BILIRUBIN 0.2 mg/dL (0.0-1.0)
[2020-03-22 16:42] LABS: BILIRUBIN,URINE NEGATIVE (NEGATIVE); BLOOD, URINE 1+ (NEGATIVE); CLARITY/URINE SL CLOUDY (CLEAR); GLUCOSE,URINE 3+ (NEGATIVE); KETONES,URINE NEGATIVE (NEGATIVE); LEUKOCYTE ESTERASE ,URINE TRACE (NEGATIVE); NITRITE, URINE NEGATIVE (NEGATIVE); PROTEIN URINE NEGATIVE (NEGATIVE); UROBILINOGEN,URINE 0.2 (0.2-1.0)
[2020-03-22 17:05] LABS: COLOR,URINE YELLOW (YELLOW)
[2020-03-22 17:25] LABS: BACTERIA,URINE MODERATE /HPF (None Seen); WBC,URINE 20-50 /HPF (0-3)
[2020-03-22 17:26] LABS: MUCUS,URINE None Seen /LPF (None Seen); YEAST,URINE Moderate /HPF (None Seen)
--- NOTE | 2020-03-22 17:30 | NUR ---
Pt A&Ox4, respirations even and unlabored
[2020-03-22] MEDS ORDERED: INSULIN REGULAR, HUMAN 10 UNITS/0.1 ML INJ IVP ONE (17:45)
[2020-03-22] MEDS ORDERED: MORPHINE 4 MG/ML INJ. SYRINGE IVP ONE (17:45)
--- NOTE | 2020-03-22 17:45 | NUR ---
Pt c/o nausea at this time, notified
[2020-03-22] MEDS ORDERED: cefTRIAXone 2 GM VIAL ONE (17:58)
--- NOTE | 2020-03-22 18:35 | NUR ---
Patient will be admitted to care of Dr Biggs. Admitted to Medsurg unit. Will go to room 100A. Belongings list completed. Complete and up to date summary report printed. SBAR report to be given at bedside with opportunity for questions.
--- NOTE | 2020-03-22 18:38 | NUR ---
Admission patient brought to room 100A via gurney, received SBAR report from SHAPING MACHINE TENDER, patient resting in bed, respirations even and unlabored on room air, no acute distress noted, patient reports pain is controlled, educated patient on use of call light and asked to call for assistance, patient verbalized understanding, call light in reach, educated patient on use of bed alarm for patient safety, patient refusing bed alarm, bed in low and locked position.
[2020-03-22 18:41] VITALS: BP_SYST 123
[2020-03-22] MEDS ORDERED: FLU VACC QS2020-21 (6 mos & up) 0.5 ML/SYRINGE I.M. PRN (19:00)
[2020-03-22] MEDS: NACL 0.9% 1,000 ML IV SCH ×2 (19:10→21:24)
--- NOTE | 2020-03-22 19:10 | NUR ---
Closing Note bedside SBAR report given to receiving RN, patient resting in bed, respirations even and unlabored on room air, no acute distress noted, call light in reach, bed in low and locked position, care endorsed to Conrad DAVIS.
[2020-03-22] MEDS ORDERED: MORPHINE 2 MG/ML INJ. SYRINGE IVP PRN ×2 (19:15)
[2020-03-22] MEDS ORDERED: MUPIROCIN 2% TOPICAL OINTMENT 22 GM NS PRN (19:15)
[2020-03-22] MEDS ORDERED: POTASSIUM CHLORIDE 20 MEQ TAB.PRT.SR PO PRN (19:15)
[2020-03-22] MEDS ORDERED: ZOLPIDEM TARTRATE 5 MG TABLET PO PRN (19:15)
[2020-03-22] MEDS ORDERED: MAGNESIUM SULFATE 50 ML IV PRN (19:15)
[2020-03-22] MEDS ORDERED: DEXTROSE 50% JECT 50 ML DISP.SYRIN IVP PRN (19:15)
[2020-03-22] MEDS ORDERED: DOCUSATE SODIUM 100 MG CAPSULE PO PRN (19:15)
[2020-03-22] MEDS ORDERED: LORazepam 2 MG/ML VIAL IVP PRN (19:15)
--- NOTE | 2020-03-22 19:30 | NUR ---
OPENING NOTES: Received report from dayshift nurse. Patient is laying in bed with no s/s of distress or discomfort. She is A & O x4 on room air, tolerating well. C/O of having a headache 4/10 on pain scale and c/o feeling dizzy. IV on LAC noted, appears to be infusing well with dry and intact dressing. Instructed patient to use call light for assistance to the bathroom to prevent falls due to dizziness, she verbalized understanding. All safety measures were insured. Bed is locked and in the lowest position with alarm on. Will return for vitals.
[2020-03-22] MEDS: cefTRIAXone 1 GM in D5W 50 ML IV SCH (20:00)
[2020-03-22] MEDS ORDERED: IPRATROPIUM/ALBUTEROL SULFATE 3 ML AMPUL.NEB (DUONEB) INH PRN (20:30)
--- NOTE | 2020-03-22 20:31 | NUR ---
Spoke to Dr. Biggs informed MD that patient has history of asthma and does not have any breathing treatments ordered. MD ordered Duonebs. Also informed MD that he ordered a dose of Rocephin 1 gram for tonight, but patient has already received Rocephin 2 grams in the ER. MD stated to start dose tomorrow. RN read back and clarified orders with MD.
[2020-03-22 21:09] VITALS: BP_SYST 123
--- NOTE | 2020-03-22 21:15 | NUR ---
MEDICATION ADMINISTRATION: Patient is laying in bed with no s/s of distress or discomfort. Vital signs are within normal range. Accucheck done with BG of 319 and 8 units of Humalog insulin was given. Medications were administered as ordered, pt tolerating well. Educated patient about the effects of Insulin, she verbalized understanding and does not have any questions or concerns at this time. Ensured all safety precautions. Bed is in the lowest position with alarm on and call light within reach.
[2020-03-22] MEDS: FLUCONAZOLE 200 mg/ NS 100 ML IV SCH (21:20)
[2020-03-22] MEDS: ACETAMINOPHEN 325 MG TABLET PO PRN (21:21)
[2020-03-22] MEDS: INSULIN LISPRO SLIDING SCALE 100 UNITS/ML VIAL (humaLOG) SUBCUT PRN (21:22)
--- NOTE | 2020-03-22 23:00 | NUR ---
RN ROUNDS: Patient is laying in bed and appears to be asleep. She has unlabored breathing on room air and is not exhibiting any s/s of distress or discomfort. Bed is in the lowest position with alarm on and call light within reach. Will continue to monitor.
[2020-03-23] VITALS: BP_SYST 112
--- NOTE | 2020-03-23 | NUR ---
RN ROUNDS / VITALS: Patient is resting in bed with no apparent s/s of distress or discomfort. Vitals are within normal range. Patient does not have any concerns at this time. Will continue to monitor. Bed is in the lowest position with alarm on and call light within reach.
--- NOTE | 2020-03-23 02:00 | NUR ---
RN ROUNDS: Patient is laying in bed and appears to be asleep. She is not exhibiting any s/s of distress or discomfort. Bed is in the lowest position and call light within reach. Will continue to monitor.
--- NOTE | 2020-03-23 04:00 | NUR ---
RN ROUNDS: Patient is laying in bed and appears to be asleep. She is not exhibiting any s/s of distress or discomfort. She is on room air, tolerating well. Bed is in the lowest position and call light within reach. Will continue to monitor.
[2020-03-23] MEDS: INSULIN LISPRO SLIDING SCALE 100 UNITS/ML VIAL (humaLOG) SUBCUT PRN ×4 (06:12→21:26)
[2020-03-23 06:22] LABS: BASOPHILS % (AUTO) 0.7 % (0.0-2.0); EOSINOPHILS # (AUTO) 0.1 K/uL (0.0-0.4); EOSINOPHILS % (AUTO) 1.8 % (0.0-4.0); HEMATOCRIT 39.6 % (36-48); LYMPHOCYTES # (AUTO) 3.3 K/uL (1.0-5.5); LYMPHOCYTES % (AUTO) 48.8 % (20.5-51.5); MEAN CORPUSCULAR HEMOGLOBIN 28 pg (27-31); MEAN CORPUSCULAR HGB CONC 33 % (32-36); MEAN CORPUSCULAR VOLUME 86 fL (79.0-98.0); MONOCYTES # (AUTO) 0.4 K/uL (0.0-1.0); MONOCYTES % (AUTO) 5.4 % (1.7-9.3); NEUTROPHILS # (AUTO) 2.9 K/uL (1.8-7.7); NEUTROPHILS % (AUTO) 43.3 % (40.0-70.0); PLATELET COUNT (AUTO) 148 K/uL (130-430); RED BLOOD CELL COUNT(AUTO) 4.62 MIL/uL (4.2-6.2); RED CELL DISTRIBUTION WIDTH 13.3 % (9.0-15.0); WHITE BLOOD COUNT (AUTO) 6.8 K/uL (4.8-10.8)
--- NOTE | 2020-03-23 06:54 | NUR ---
CLOSING NOTES: Patient is resting in bed, alert and oriented x4. She does not have any s/s of distress or discomfort. Morning BG was 276. 6 units of insulin administered, pt tolerated well. IV infusing at 120mL/hr, patent and intact. All needs were met throughout shift. Bed is locked and at lowest position and call light within reach. Will endorse to dayshift nurse.
[2020-03-23 07:05] LABS: CALCIUM 8.2 mg/dL (8.4-11.0); CREATININE 0.54 mg/dL (0.55-1.30); POTASSIUM 3.8 mmol/L (3.5-5.1)
[2020-03-23] MEDS: ONDANSETRON HCL 4 MG/2 ML VIAL IVP PRN ×2 (07:22→19:55)
--- NOTE | 2020-03-23 07:40 | NUR ---
PATIENT WAS HAVING N/V. VOMIT WAS CLEAR. PT WAS GIVEN ZOFRAN TO CONTROL N/V. ZOFRAN CONTROLLED VOMITING. PT STATED SHE WAS HAVING NO PAIN OTHER THAN THE N/V. WILL CONTINUE TO MONITOR.
[2020-03-23 07:58] VITALS: BP_SYST 108
[2020-03-23] MEDS: metFORMIN HCL 500 MG TABLET PO SCH ×2 (08:07→17:59)
--- NOTE | 2020-03-23 08:30 | NUR ---
PT FEELS BETTER. N/V IS CONTROLLED. PATIENT WAS ABLE TO EAT. SHE IS LAYING IN BED WATCHING TV.
[2020-03-23] MEDS: ACETAMINOPHEN 325 MG TABLET PO PRN ×2 (11:27→12:52)
[2020-03-23] MEDS: NACL 0.9% 1,000 ML IV SCH ×2 (11:31→21:27)
[2020-03-23 12:46] VITALS: BP_SYST 119
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
--- NOTE | 2020-03-23 15:49 | NUR ---
PT IS RESTING, ASLEEP. BED IN LOWEST POSITION, 2 SIDE RAILS UP, CALL LIGHT AT REACH.
[2020-03-23 16:00] VITALS: BP_SYST 110
--- NOTE | 2020-03-23 18:15 | NUR ---
PATIENT WAS SITTING ON THE SIDE OF THE BED. SHE IS ABLE TO DRINK HER CLEAR LIQUIDS AND HAS APETTITE IS ASKING WHEN SHE WILL BE ABLE TO EAT REGULAR FOOD.
--- NOTE | 2020-03-23 19:30 | NUR ---
OPENING NOTES: Received report from dayshift nurse. Patient is A & O x4 c/o severe headache 04/02. She states Tylenol is not helping with her pain and is requesting stronger meds. Informed patient would return to take vitals and administer pain meds, she verbalized understanding. Patient is otherwise on room air with unlabored breathing. Patient has IV left AC that appears to be infusing well. She is ambulatory and does not have any other concerns. Ensured all safety precautions. Bed is locked and in the lowest position and call light within reach.
--- NOTE | 2020-03-23 19:50 | NUR ---
MEDICATION ADMINISTRATION: Patient is laying in bed with facial grimacing and holding on to head. Vitals are within normal range and patient does not have any s/s of distress. I administered Morphine as ordered by MD for pain 04/02 and Zofran to help with nausea, pt tolerated well. Also administered antibiotics as ordered. Educated patient about the potential side effects of Morphine and advised her to use the call light for assistance to get out of bed, she verbalized understanding. Will return to reassess patient. Ensured all safety precautions. Bed is in the lowest position and call light within reach.
[2020-03-23] MEDS: cefTRIAXone 1 GM in D5W 50 ML IV SCH (19:55)
[2020-03-23 20:00] VITALS: BP_SYST 121
--- NOTE | 2020-03-23 21:20 | NUR ---
MD ORDERS: Spoke with Dr. Biggs and requested alternative medication for headaches as Tylenol 325 mg is not helping patient and Morphine has been administered. Received verbal orders for [place] 5/325 every 6 hours for moderate pain. Orders were repeated and confirmed.
[2020-03-23] MEDS: FLUCONAZOLE 200 mg/ NS 100 ML IV SCH (21:27)
[2020-03-23] MEDS ORDERED: HYDROcodone/ACETAMIN 5-325 MG TAB (NORCO/ VICODIN) PO PRN (22:00)
--- NOTE | 2020-03-23 23:00 | NUR ---
RN ROUNDS: Patient is laying in bed and is not exhibiting any s/s of distress or discomfort. IV is infusing well. Bed is in the lowest position and call light within reach. Will continue to monitor patient.
[2020-03-24] VITALS: BP_SYST 105
--- NOTE | 2020-03-24 | NUR ---
RN ROUNDS: Patient is resting in bed and is A & O x3. Her vitals are within normal limits and states pain meds helped with her headache. She does not have any concerns at this time. Ensured all safety precautions and will continue to monitor. Bed is in the lowest position and call light within reach.
--- NOTE | 2020-03-24 02:00 | NUR ---
RN ROUNDS: Patient is laying in bed and appears to be asleep. She is not exhibiting any s/s of distress or discomfort. Bed is locked and in the lowest position. Call light within reach. Will continue to monitor patient.
[2020-03-24] MEDS: INSULIN LISPRO SLIDING SCALE 100 UNITS/ML VIAL (humaLOG) SUBCUT PRN ×3 (06:08→17:42)
[2020-03-24] MEDS: NACL 0.9% 1,000 ML IV SCH ×2 (06:08→12:17)
[2020-03-24 06:20] LABS: BASOPHILS # (AUTO) 0.1 K/uL (0.0-0.2); BASOPHILS % (AUTO) 0.8 % (0.0-2.0); EOSINOPHILS # (AUTO) 0.1 K/uL (0.0-0.4); EOSINOPHILS % (AUTO) 1.5 % (0.0-4.0); HEMATOCRIT 39.3 % (36-48); HEMOGLOBIN 12.9 g/dL (12.0-16.0); LYMPHOCYTES # (AUTO) 2.3 K/uL (1.0-5.5); LYMPHOCYTES % (AUTO) 34.2 % (20.5-51.5); MEAN CORPUSCULAR HEMOGLOBIN 28 pg (27-31); MEAN CORPUSCULAR HGB CONC 33 % (32-36); MEAN CORPUSCULAR VOLUME 85 fL (79.0-98.0); MONOCYTES # (AUTO) 0.4 K/uL (0.0-1.0); MONOCYTES % (AUTO) 5.2 % (1.7-9.3); NEUTROPHILS % (AUTO) 58.3 % (40.0-70.0); PLATELET COUNT (AUTO) 147 K/uL (130-430); RED BLOOD CELL COUNT(AUTO) 4.61 MIL/uL (4.2-6.2); RED CELL DISTRIBUTION WIDTH 13.3 % (9.0-15.0); WHITE BLOOD COUNT (AUTO) 6.8 K/uL (4.8-10.8)
--- NOTE | 2020-03-24 06:28 | NUR ---
CLOSING NOTES: Patient is resting in bed, alert and oriented x4. She does not have any s/s of distress or discomfort. Morning BG was 232. 4 units of insulin administered, pt tolerated well. IV infusing at 120mL/hr, patent and intact. Bed is locked and at lowest position and call light within reach. All needs were met throughout shift. Will endorse to dayshift nurse.
[2020-03-24 06:54] LABS: CALCIUM 8.3 mg/dL (8.4-11.0); CREATININE 0.52 mg/dL (0.55-1.30); POTASSIUM 3.8 mmol/L (3.5-5.1)
--- NOTE | 2020-03-24 07:25 | NUR ---
Opening Note patient resting in bed, a/o x 4, respirations even and unlabored, no other needs at this time, safety measures put in place, bed locked and at low position, call light within reach, fall and aspiration precautions put in place, will monitor patient for any changes.
[2020-03-24 07:40] VITALS: BP_SYST 130
[2020-03-24] MEDS ORDERED: LEVO500T89 PO (07:58)
[2020-03-24] MEDS ORDERED: ALBU8.5H8 INH (07:58)
[2020-03-24] MEDS ORDERED: FLUC100T41 PO (08:01)
[2020-03-24] MEDS: metFORMIN HCL 500 MG TABLET PO SCH ×2 (08:19→17:44)
--- NOTE | 2020-03-24 09:45 | NUR ---
RN Rounds patient in bed resting alert and awake, educated patient on maintaining a healthy diet and exercise and living with diabetes, patient verbalized understanding, safety measures maintained, bed locked and at low position, call light within reach, will monitor patient for any changes.
[2020-03-24 12:00] VITALS: BP_SYST 116
--- NOTE | 2020-03-24 12:59 | NUR ---
RN Rounds/Medication patient in bed sitting up awake and alert, no signs of distress noted, administered medication ordered per MD, patient tolerated well, safety measures maintained, will continue to monitor patient for any changes.
--- NOTE | 2020-03-24 15:45 | NUR ---
RN Rounds patient in bed awake and alert, informed patient of discharge planning, patient is in agreement, no other needs at this time.
[2020-03-24 16:41] VITALS: BP_SYST 121
[2020-03-24 16:48] VITALS: BP_SYST 121
--- NOTE | 2020-03-24 17:50 | NUR ---
Checked patient's blood sugar level administered medication ordered per MD to control blood sugar level, patient tolerated well, no signs of distress noted, safety measures maintained.
--- NOTE | 2020-03-24 18:57 | NUR ---
D/C Patient Patient given medication reconciliation form and D/C instructions. Exit Care provided. Patient verbalized understanding. MD discussed with patient the results and treatment provided. Ambulatory with steady gait for discharge to home. Patient in stable condition, ID band removed. IV catheter removed, intact and dressing applied, no active bleeding. ePrescription sent to pharmacy by physician, instructed patient to pick out hand prescription. Patient educated on pain management. All belongings sent with patient.
== END 2020-03-24 18:57 | disposition home or self-care (01) | DRG 463 ==
LOC: SED 15:32 → SMU 18:13
PROVIDERS: ADMIT General Practice; ATTEND General Practice
DX: N12 Tubulo-interstitial nephritis, not specified as acute or chronic (principal); E11.65 Type 2 diabetes mellitus with hyperglycemia; E66.9 Obesity, unspecified; B37.49 Other urogenital candidiasis; F12.90 Cannabis use, unspecified, uncomplicated; Z20.828 Contact with and (suspected) exposure to other viral communicable diseases; J45.909 Unspecified asthma, uncomplicated; F41.9 Anxiety disorder, unspecified; Z91.018 Allergy to other foods; Z79.84 Long term (current) use of oral hypoglycemic drugs; Z90.49 Acquired absence of other specified parts of digestive tract; Z98.891 History of uterine scar from previous surgery; Z98.51 Tubal ligation status; Z68.35 Body mass index [BMI] 35.0-35.9, adult
CPT/HCPCS: 36415; 80048; 80053; 81000-TC; 82962; 83036; 83735-TC; 85025; 87040-TC; 87086; 87186-TC; 96365; 96366; 96368; 96375; 99285; J0696; J1450; J1815; J1885; J2270; J2405; J3475; J3480; J7030; J7060

== ENCOUNTER 2020-05-27 18:28 | Emergency (ER) | payer MEDICAID, SELFPAY ==
[~2020-05-27] VITALS: Ht 167.6 cm; Wt 94.3 kg
[~2020-05-27 18:28] MED LIST changes: +ALBU8.5H8 INH; -AMOX-423 PO; +FLUC100T41 PO; +LEVO500T89 PO
[2020-05-27 18:51] VITALS: BP_SYST 138
--- NOTE | 2020-05-27 18:59 | NUR ---
TRIAGED IN TENT
[2020-05-27] MEDS ORDERED: ONDANSETRON 4 MG ODT TAB PO ONE (19:00)
[2020-05-27 20:06] LABS: BASOPHILS # (AUTO) 0.1 K/uL (0.0-0.2); BASOPHILS % (AUTO) 0.5 % (0.0-2.0); EOSINOPHILS # (AUTO) 0.2 K/uL (0.0-0.4); HEMATOCRIT 43.3 % (36-48); HEMOGLOBIN 14.6 g/dL (12.0-16.0); LYMPHOCYTES % (AUTO) 37.6 % (20.5-51.5); MEAN CORPUSCULAR HEMOGLOBIN 29 pg (27-31); MEAN CORPUSCULAR HGB CONC 34 % (32-36); MEAN CORPUSCULAR VOLUME 85 fL (79.0-98.0); MONOCYTES # (AUTO) 0.6 K/uL (0.0-1.0); MONOCYTES % (AUTO) 5.6 % (1.7-9.3); NEUTROPHILS # (AUTO) 5.7 K/uL (1.8-7.7); NEUTROPHILS % (AUTO) 54.3 % (40.0-70.0); PLATELET COUNT (AUTO) 172 K/uL (130-430); RED BLOOD CELL COUNT(AUTO) 5.11 MIL/uL (4.2-6.2); RED CELL DISTRIBUTION WIDTH 13.1 % (9.0-15.0); WHITE BLOOD COUNT (AUTO) 10.5 K/uL (4.8-10.8)
[2020-05-27 20:12] LABS: ANION GAP 9 (5-15); CALCIUM 8.9 mg/dL (8.4-11.0); CHLORIDE 102 mmol/L (98-107); CREATININE 0.63 mg/dL (0.55-1.30); GLUCOSE 243 mg/dL (70-99); POTASSIUM 3.9 mmol/L (3.5-5.1); SODIUM SERUM 137 mmol/L (136-145); UREA NITROGEN, BLOOD 10 mg/dL (8-21)
[2020-05-27 20:19] LABS: GFR AFRICAN AMERICAN 140 mL/min (>90)
[2020-05-27 20:21] LABS: ALANINE AMINOTRANSFERASE 33 U/L (12-78); ALBUMIN 3.9 g/dL (3.4-4.8); ASPARTATE AMINOTRANSFERASE 16 U/L (10-37); TOTAL BILIRUBIN 0.2 mg/dL (0.0-1.0)
--- NOTE | 2020-05-27 20:40 | NUR ---
PT. PLACED IN ER BED MANAGER OF EXHIBITIONS AND COLLECTIONSSUSAN DEL ROSARIO ASSUMED CARE OF PT.
--- NOTE | 2020-05-27 20:47 | NUR ---
PT. AMBULATED TO RESTROOM WITHOUT ASSISTANCE URINE SAMPLE COLLECTED AND SENT TO LAB
[2020-05-27] MEDS ORDERED: METOCLOPRAMIDE HCL 10 MG/2 ML VIAL IVP ONE (21:00)
[2020-05-27 21:12] LABS: BILIRUBIN,URINE NEGATIVE (NEGATIVE); COLOR,URINE YELLOW (YELLOW); GLUCOSE,URINE 3+ (NEGATIVE); KETONES,URINE TRACE (NEGATIVE); NITRITE, URINE NEGATIVE (NEGATIVE); PROTEIN URINE 1+ (NEGATIVE); UROBILINOGEN,URINE 0.2 (0.2-1.0)
[2020-05-27 21:23] LABS: BLOOD, URINE TRACE (NEGATIVE); CLARITY/URINE HAZY (CLEAR); LEUKOCYTE ESTERASE ,URINE 2+ (NEGATIVE)
[2020-05-27 21:24] LABS: BACTERIA,URINE FEW /HPF (None Seen); MUCUS,URINE None Seen /LPF (None Seen); WBC,URINE 20-50 /HPF (0-3)
[2020-05-27] MEDS ORDERED: NACL 0.9% 1,000 ML IV ONE (21:30)
[2020-05-27] MEDS ORDERED: cefTRIAXone 1 GM in D5W 50 ML IV ONE (21:30)
[2020-05-27] MEDS ORDERED: ONDANSETRON 4 MG ODT TAB ONE (22:05)
[2020-05-27] MEDS ORDERED: cefTRIAXone 1 GM VIAL ONE (22:05)
--- NOTE | 2020-05-27 22:15 | NUR ---
ER Dr. VELASQUEZ at bedside examining patient.
[2020-05-27 23:52] VITALS: BP_SYST 120
--- NOTE | 2020-05-27 23:56 | NUR ---
Patient given written and verbal discharge instructions and verbalizes understanding. ER MD VELASQUEZ discussed with patient the results and treatment provided. Patient in stable condition. ID arm band removed. IV catheter removed intact and dressing applied, no active bleeding. Rx of ZOFRAN AND CEPHALEXDIN given. Patient educated on pain management and to follow up with PMD. Pain Scale 0/10. Opportunity for questions provided and answered. Medication side effect fact sheet provided.
== END 2020-05-27 23:56 | disposition home or self-care (01) ==
LOC: SED 18:28
DX: N30.00 Acute cystitis without hematuria (principal); R10.84 Generalized abdominal pain; R11.2 Nausea with vomiting, unspecified; F41.9 Anxiety disorder, unspecified; J45.909 Unspecified asthma, uncomplicated; E11.9 Type 2 diabetes mellitus without complications; Z79.899 Other long term (current) drug therapy; Z91.018 Allergy to other foods; Z20.828 Contact with and (suspected) exposure to other viral communicable diseases
CPT/HCPCS: 36415; 71045; 74176; 76376; 80053; 81000; 81025; 84484; 85025; 87086; 87426; 93005; 96365; 96375; 99285; J0696; J2765; J7030; Q0162

== ENCOUNTER 2020-07-08 09:40 | Emergency (ER) | payer MEDICAID, SELFPAY ==
[~2020-07-08] VITALS: Ht 167.6 cm; Wt 90.7 kg
[2020-07-08 10:06] VITALS: BP_SYST 137
[2020-07-08] MEDS ORDERED: LEVO500T89 PO (10:46)
[2020-07-08] MEDS ORDERED: ALBU2.5V7 INH (10:46)
[2020-07-08] MEDS ORDERED: DEC4 PO (10:46)
[2020-07-08 11:45] VITALS: BP_SYST 137
== END 2020-07-08 11:45 | disposition home or self-care (01) ==
LOC: SED 09:40
DX: U07.1 COVID-19 (principal); J45.909 Unspecified asthma, uncomplicated; E11.9 Type 2 diabetes mellitus without complications; F41.9 Anxiety disorder, unspecified; Z79.899 Other long term (current) drug therapy; Z91.018 Allergy to other foods
CPT/HCPCS: 99283

== ENCOUNTER 2020-07-20 18:45 | Emergency (ER) | payer MEDICAID, SELFPAY ==
[~2020-07-20] VITALS: Ht 167.6 cm; Wt 90.7 kg
[2020-07-20 18:45] VITALS: BP_SYST 129
[~2020-07-20 18:45] MED LIST changes: +ALBU2.5V7 INH; +DEC4 PO
[2020-07-20] MEDS ORDERED: DEXAMETHASONE SOD PHOSPHATE 10 MG/ML VIAL IM ONE (19:15)
[2020-07-20] MEDS ORDERED: IPRATROPIUM/ALBUTEROL SULFATE 3 ML AMPUL.NEB (DUONEB) INH ONE (19:15)
[2020-07-20 21:01] VITALS: BP_SYST 129
== END 2020-07-20 21:01 | disposition home or self-care (01) ==
LOC: SED 18:45
DX: U07.1 COVID-19 (principal); J45.901 Unspecified asthma with (acute) exacerbation; E11.9 Type 2 diabetes mellitus without complications; F41.9 Anxiety disorder, unspecified; Z79.899 Other long term (current) drug therapy; Z91.018 Allergy to other foods
CPT/HCPCS: 71045; 94640; 96372; 99283; J1100

== ENCOUNTER 2020-08-20 20:07 | Emergency (ER) | payer MEDICAID, SELFPAY ==
[~2020-08-20] VITALS: Ht 167.6 cm; Wt 90.7 kg
[2020-08-20 20:11] VITALS: BP_SYST 145
[2020-08-20] MEDS ORDERED: KETOROLAC TROMETHAMINE 60 MG/2 ML VIAL IM ONE (20:30)
[2020-08-20] MEDS ORDERED: IBUP-1969 PO (20:55)
[2020-08-20] MEDS ORDERED: HYDR-4272 PO (20:55)
[2020-08-20 21:04] VITALS: BP_SYST 145
== END 2020-08-20 21:04 | disposition home or self-care (01) ==
LOC: SED 20:07
DX: S50.02XA Contusion of left elbow, initial encounter (principal); E11.9 Type 2 diabetes mellitus without complications; J45.909 Unspecified asthma, uncomplicated; Z91.018 Allergy to other foods; W22.8XXA Striking against or struck by other objects, initial encounter; Y93.89 Activity, other specified; Y92.89 Other specified places as the place of occurrence of the external cause; Y99.8 Other external cause status
CPT/HCPCS: 73070; 96372; 99283; J1885

== ENCOUNTER 2020-09-14 18:33 | Emergency (ER) | payer MEDICAID ==
[~2020-09-14] VITALS: Ht 167.6 cm; Wt 95.3 kg
[~2020-09-14 18:33] MED LIST changes: +HYDR-4272 PO; +IBUP-1969 PO
[2020-09-14 18:49] VITALS: BP_SYST 133
[2020-09-14] MEDS ORDERED: LOPERAMIDE HCL 2 MG CAPSULE PO ONE (19:30)
[2020-09-14 19:51] LABS: BASOPHILS # (AUTO) 0.1 K/uL (0.0-0.2); BASOPHILS % (AUTO) 1.5 % (0.0-2.0); EOSINOPHILS # (AUTO) 0.1 K/uL (0.0-0.4); EOSINOPHILS % (AUTO) 1.3 % (0.0-4.0); HEMATOCRIT 42.4 % (36-48); HEMOGLOBIN 14.3 g/dL (12.0-16.0); LYMPHOCYTES # (AUTO) 3.4 K/uL (1.0-5.5); MEAN CORPUSCULAR HEMOGLOBIN 29 pg (27-31); MEAN CORPUSCULAR HGB CONC 34 % (32-36); MEAN CORPUSCULAR VOLUME 86 fL (79.0-98.0); MONOCYTES # (AUTO) 0.4 K/uL (0.0-1.0); MONOCYTES % (AUTO) 5.5 % (1.7-9.3); NEUTROPHILS # (AUTO) 4.1 K/uL (1.8-7.7); NEUTROPHILS % (AUTO) 49.7 % (40.0-70.0); PLATELET COUNT (AUTO) 181 K/uL (130-430); RED BLOOD CELL COUNT(AUTO) 4.94 MIL/uL (4.2-6.2); RED CELL DISTRIBUTION WIDTH 13.3 % (9.0-15.0); WHITE BLOOD COUNT (AUTO) 8.1 K/uL (4.8-10.8)
[2020-09-14 20:10] LABS: BILIRUBIN,URINE NEGATIVE (NEGATIVE); BLOOD, URINE 1+ (NEGATIVE); COLOR,URINE YELLOW (YELLOW); GLUCOSE,URINE 3+ (NEGATIVE); KETONES,URINE NEGATIVE (NEGATIVE); LEUKOCYTE ESTERASE ,URINE NEGATIVE (NEGATIVE); NITRITE, URINE NEGATIVE (NEGATIVE); PH,URINE 5.5 (5.0-8.0); PROTEIN URINE NEGATIVE (NEGATIVE); UROBILINOGEN,URINE 0.2 (0.2-1.0)
[2020-09-14 20:11] LABS: CLARITY/URINE SLIGHTLY HAZY (CLEAR)
[2020-09-14 20:14] LABS: CALCIUM 9.1 mg/dL (8.4-11.0); CREATININE 0.69 mg/dL (0.55-1.30); POTASSIUM 4.2 mmol/L (3.5-5.1)
[2020-09-14 20:15] LABS: BACTERIA,URINE FEW /HPF (None Seen); MUCUS,URINE None Seen /LPF (None Seen); WBC,URINE 0-3 /HPF (0-3)
[2020-09-14 20:19] LABS: ALBUMIN 3.6 g/dL (3.4-4.8); TOTAL BILIRUBIN 0.2 mg/dL (0.0-1.0)
[2020-09-14] MEDS ORDERED: LIDOCAINE 1%, 20 ML MDV 20 ML ONE (20:26)
[2020-09-14] MEDS ORDERED: cefTRIAXone 1 GM VIAL ONE (20:26)
[2020-09-14] MEDS ORDERED: cefTRIAXone 1 GM in LIDOCAINE 1%, 20 ML MDV 2.1 ML IM ONE (20:30)
[2020-09-14] MEDS ORDERED: IMO2 PO (22:13)
[2020-09-14] MEDS ORDERED: CEPH500C2 PO (22:13)
[2020-09-14 22:43] VITALS: BP_SYST 132
== END 2020-09-14 22:43 | disposition home or self-care (01) ==
LOC: SED 18:33
DX: N39.0 Urinary tract infection, site not specified (principal); E11.9 Type 2 diabetes mellitus without complications; R19.7 Diarrhea, unspecified; J45.909 Unspecified asthma, uncomplicated; F41.9 Anxiety disorder, unspecified; Z79.899 Other long term (current) drug therapy
CPT/HCPCS: 36415; 80053; 81000; 81025; 82272; 82962; 85025; 96372; 99283; J0696; J2001; 87045-TC; 87230-TC

== ENCOUNTER 2020-10-09 12:56 | Emergency (ER) | payer MEDICAID ==
[~2020-10-09] VITALS: Ht 167.6 cm; Wt 90.7 kg
[~2020-10-09 12:56] MED LIST changes: +CEPH500C2 PO; +IMO2 PO
[2020-10-09 12:58] VITALS: BP_SYST 126
--- NOTE | 2020-10-09 13:03 | NUR ---
Patient to ER bed 8 to gown for evaluation. Side rails up.
--- NOTE | 2020-10-09 13:04 | NUR ---
Patient is awake, alert, and oriented x4. Patient ambulated to emergency room for evaluation of abdominal pain, nausea, vomiting, chills, and headache x3 days. Patient denies shortness of breath and chest pain.
--- NOTE | 2020-10-09 13:04 | NUR ---
ER Dr. Simmons at bedside examining patient.
[2020-10-09] MEDS ORDERED: KETOROLAC TROMETHAMINE 60 MG/2 ML VIAL IM ONE (13:15)
[2020-10-09] MEDS ORDERED: ONDANSETRON 4 MG ODT TAB PO ONE (13:15)
[2020-10-09 13:29] LABS: BILIRUBIN,URINE NEGATIVE (NEGATIVE); CLARITY/URINE SL CLOUDY (CLEAR); COLOR,URINE YELLOW (YELLOW); GLUCOSE,URINE 2+ (NEGATIVE); KETONES,URINE TRACE (NEGATIVE); LEUKOCYTE ESTERASE ,URINE NEGATIVE (NEGATIVE); NITRITE, URINE NEGATIVE (NEGATIVE); PROTEIN URINE NEGATIVE (NEGATIVE); UROBILINOGEN,URINE 0.2 (0.2-1.0)
[2020-10-09 13:31] LABS: BASOPHILS % (AUTO) 0.3 % (0.0-2.0); EOSINOPHILS # (AUTO) 0.1 K/uL (0.0-0.4); EOSINOPHILS % (AUTO) 0.9 % (0.0-4.0); HEMATOCRIT 43.4 % (36-48); HEMOGLOBIN 14.8 g/dL (12.0-16.0); LYMPHOCYTES % (AUTO) 11.9 % (20.5-51.5); MEAN CORPUSCULAR HEMOGLOBIN 29 pg (27-31); MEAN CORPUSCULAR HGB CONC 34 % (32-36); MEAN CORPUSCULAR VOLUME 85 fL (79.0-98.0); MONOCYTES # (AUTO) 0.6 K/uL (0.0-1.0); MONOCYTES % (AUTO) 7.8 % (1.7-9.3); NEUTROPHILS # (AUTO) 6.5 K/uL (1.8-7.7); NEUTROPHILS % (AUTO) 79.1 % (40.0-70.0); PLATELET COUNT (AUTO) 153 K/uL (130-430); RED CELL DISTRIBUTION WIDTH 12.8 % (9.0-15.0); WHITE BLOOD COUNT (AUTO) 8.3 K/uL (4.8-10.8)
[2020-10-09 13:32] LABS: BLOOD, URINE TRACE (NEGATIVE)
[2020-10-09 13:38] LABS: BACTERIA,URINE None Seen /HPF (None Seen); CALCIUM OXALATE CRYSTALS,UR None Seen /HPF (None Seen); CALCIUM PHOSPHATE CRYSTALS,UR None Seen /HPF (None Seen); RBC,URINE 0-3 /HPF (0-3); TRICHOMONAS,URINE None Seen /HPF (None Seen); WBC,URINE 0-3 /HPF (0-3); YEAST,URINE None Seen /HPF (None Seen)
[2020-10-09 13:38] LABS: CALCIUM 8.6 mg/dL (8.4-11.0); CREATININE 0.64 mg/dL (0.55-1.30); POTASSIUM 3.9 mmol/L (3.5-5.1)
[2020-10-09 13:42] LABS: PROTHROMBIN TIME 9.9 SECS (9.5-12.5)
[2020-10-09 13:44] LABS: ALBUMIN 3.5 g/dL (3.4-4.8); TOTAL BILIRUBIN 0.8 mg/dL (0.0-1.0)
[2020-10-09 13:55] LABS: C-REACTIVE PROTEIN QUANT 2.3 mg/dL (0-0.5)
--- NOTE | 2020-10-09 14:25 | NUR ---
Patient is sleeping comfortably in the gurney. No signs or symptoms distress noted.
[2020-10-09] MEDS ORDERED: IBUP-1971 PO (14:35)
[2020-10-09] MEDS ORDERED: ONDA-8 TL (14:35)
[2020-10-09 14:41] VITALS: BP_SYST 114
--- NOTE | 2020-10-09 14:41 | NUR ---
Patient given written and verbal discharge instructions and verbalizes understanding. ER MD discussed with patient the results and treatment provided. Patient in stable condition. ID arm band removed. Rx of ibuprofen,zofran given. Patient educated on pain management and to follow up with PMD. Pain Scale 0/10. Opportunity for questions provided and answered. Medication side effect fact sheet provided.
== END 2020-10-09 14:41 | disposition home or self-care (01) ==
LOC: SED 12:56
DX: K52.9 Noninfective gastroenteritis and colitis, unspecified (principal); J45.909 Unspecified asthma, uncomplicated; E11.9 Type 2 diabetes mellitus without complications; F41.9 Anxiety disorder, unspecified; Z79.899 Other long term (current) drug therapy; Z91.018 Allergy to other foods
CPT/HCPCS: 36415; 74176; 80053; 81000; 81025; 82150; 83605; 83690; 84703; 85025; 85610; 85730; 86140; 96372; 99284; J1885; Q0162

== ENCOUNTER 2020-11-04 15:46 | Emergency (ER) | payer MEDICAID ==
[~2020-11-04] VITALS: Ht 167.6 cm; Wt 74.8 kg
[~2020-11-04 15:46] MED LIST changes: +IBUP-1971 PO; +ONDA-8 TL; +PRED20TA PO
[2020-11-04 16:05] VITALS: BP_SYST 101
[2020-11-04 16:32] LABS: BILIRUBIN,URINE NEGATIVE (NEGATIVE); BLOOD, URINE 1+ (NEGATIVE); CLARITY/URINE CLEAR (CLEAR); COLOR,URINE YELLOW (YELLOW); GLUCOSE,URINE 3+ (NEGATIVE); KETONES,URINE TRACE (NEGATIVE); LEUKOCYTE ESTERASE ,URINE NEGATIVE (NEGATIVE); NITRITE, URINE NEGATIVE (NEGATIVE); PROTEIN URINE 2+ (NEGATIVE); UROBILINOGEN,URINE 0.2 (0.2-1.0)
[2020-11-04 16:45] LABS: BACTERIA,URINE FEW /HPF (None Seen); RBC,URINE 0-3 /HPF (0-3); WBC,URINE 0-3 /HPF (0-3); YEAST,URINE Few /HPF (None Seen)
[2020-11-04 16:46] LABS: MUCUS,URINE None Seen /LPF (None Seen)
[2020-11-04] MEDS ORDERED: ONDANSETRON HCL 4 MG/2 ML VIAL IVP ONE (17:15)
[2020-11-04] MEDS ORDERED: NACL 0.9% 1,000 ML IV ONE (17:15)
[2020-11-04 17:49] LABS: BASOPHILS % (AUTO) 0.5 % (0.0-2.0); EOSINOPHILS # (AUTO) 0.2 K/uL (0.0-0.4); LYMPHOCYTES # (AUTO) 4.1 K/uL (1.0-5.5); LYMPHOCYTES % (AUTO) 44.6 % (20.5-51.5); MEAN CORPUSCULAR HEMOGLOBIN 29 pg (27-31); MEAN CORPUSCULAR HGB CONC 34 % (32-36); MEAN CORPUSCULAR VOLUME 85 fL (79.0-98.0); MONOCYTES # (AUTO) 0.5 K/uL (0.0-1.0); MONOCYTES % (AUTO) 5.8 % (1.7-9.3); NEUTROPHILS # (AUTO) 4.3 K/uL (1.8-7.7); NEUTROPHILS % (AUTO) 47.1 % (40.0-70.0); PLATELET COUNT (AUTO) 188 K/uL (130-430); RED BLOOD CELL COUNT(AUTO) 4.82 MIL/uL (4.2-6.2); RED CELL DISTRIBUTION WIDTH 12.9 % (9.0-15.0); WHITE BLOOD COUNT (AUTO) 9.1 K/uL (4.8-10.8)
[2020-11-04 17:56] LABS: CALCIUM 9.3 mg/dL (8.4-11.0); CREATININE 0.78 mg/dL (0.55-1.30); POTASSIUM 3.9 mmol/L (3.5-5.1)
[2020-11-04 18:03] LABS: ALBUMIN 3.6 g/dL (3.4-4.8); TOTAL BILIRUBIN 0.3 mg/dL (0.0-1.0)
[2020-11-04] MEDS ORDERED: CIPR500T5 PO (19:14)
[2020-11-04 19:28] VITALS: BP_SYST 111
== END 2020-11-04 19:28 | disposition home or self-care (01) ==
LOC: SED 15:46
DX: R19.7 Diarrhea, unspecified (principal); R42 Dizziness and giddiness; E11.9 Type 2 diabetes mellitus without complications; J45.909 Unspecified asthma, uncomplicated; Z91.018 Allergy to other foods; Z79.84 Long term (current) use of oral hypoglycemic drugs; Z79.899 Other long term (current) drug therapy; Z20.822 Contact with and (suspected) exposure to COVID-19
CPT/HCPCS: 36415; 71045; 80053; 81000; 81025; 82962; 84484; 85025; 87426; 93005; 96361; 96374; 99285; J2405; J7030

== ENCOUNTER 2021-01-24 14:00 | Emergency (ER) | payer MEDICAID, SELFPAY ==
[~2021-01-24] VITALS: Ht 167.6 cm; Wt 90.7 kg
[~2021-01-24 14:00] MED LIST changes: +CIPR500T5 PO
[2021-01-24 14:25] VITALS: BP_SYST 131
[2021-01-24 15:28] LABS: BILIRUBIN,URINE NEGATIVE (NEGATIVE); COLOR,URINE YELLOW (YELLOW); GLUCOSE,URINE 3+ (NEGATIVE); KETONES,URINE NEGATIVE (NEGATIVE); LEUKOCYTE ESTERASE ,URINE NEGATIVE (NEGATIVE); NITRITE, URINE NEGATIVE (NEGATIVE); PH,URINE 5.5 (5.0-8.0); PROTEIN URINE TRACE (NEGATIVE); UROBILINOGEN,URINE 0.2 (0.2-1.0)
[2021-01-24 16:25] LABS: BLOOD, URINE TRACE (NEGATIVE)
[2021-01-24 16:26] LABS: CLARITY/URINE SLIGHTLY CLOUDY (CLEAR)
[2021-01-24] MEDS ORDERED: PRED20TA PO (16:58)
[2021-01-24 17:04] VITALS: BP_SYST 119
[2021-01-24 17:26] LABS: BACTERIA,URINE MODERATE /HPF (None Seen); MUCUS,URINE None Seen /LPF (None Seen); WBC,URINE 20-50 /HPF (0-3)
== END 2021-01-24 17:04 | disposition home or self-care (01) ==
LOC: SED 14:00
DX: R20.2 Paresthesia of skin (principal); R05 Cough; J45.909 Unspecified asthma, uncomplicated; E11.9 Type 2 diabetes mellitus without complications; Z79.84 Long term (current) use of oral hypoglycemic drugs; Z79.899 Other long term (current) drug therapy; Z91.018 Allergy to other foods
CPT/HCPCS: 81000; 81025; 87086; 99283

== ENCOUNTER 2021-03-25 10:07 | Emergency (ER) | payer MEDICAID ==
[~2021-03-25] VITALS: Ht 167.6 cm; Wt 90.7 kg
[2021-03-25 10:24] VITALS: BP_SYST 125
--- NOTE | 2021-03-25 10:31 | NUR ---
Patient to ER bed 3 to gown for evaluation. Side rails up. Report given to Oliverio DAVIS.
--- NOTE | 2021-03-25 10:45 | NUR ---
Received patient in bed 3 stable, AAOX3, NAD, VSS, CC of Abdominal pain with distension for the past week. Pt has been able to tolerate food and drink, abdominal pressure diffused throughout. Labs, URINE, IVL, all complete.
[2021-03-25 10:54] LABS: BASOPHILS % (AUTO) 0.6 % (0.0-2.0); EOSINOPHILS # (AUTO) 0.1 K/uL (0.0-0.4); EOSINOPHILS % (AUTO) 1.8 % (0.0-4.0); HEMATOCRIT 42.4 % (36-48); HEMOGLOBIN 14.5 g/dL (12.0-16.0); LYMPHOCYTES # (AUTO) 2.9 K/uL (1.0-5.5); LYMPHOCYTES % (AUTO) 38.4 % (20.5-51.5); MEAN CORPUSCULAR HEMOGLOBIN 29 pg (27-31); MEAN CORPUSCULAR HGB CONC 34 % (32-36); MEAN CORPUSCULAR VOLUME 86 fL (79.0-98.0); MONOCYTES # (AUTO) 0.3 K/uL (0.0-1.0); MONOCYTES % (AUTO) 4.6 % (1.7-9.3); NEUTROPHILS # (AUTO) 4.1 K/uL (1.8-7.7); NEUTROPHILS % (AUTO) 54.6 % (40.0-70.0); PLATELET COUNT (AUTO) 162 K/uL (130-430); RED BLOOD CELL COUNT(AUTO) 4.93 MIL/uL (4.2-6.2); RED CELL DISTRIBUTION WIDTH 12.9 % (9.0-15.0); WHITE BLOOD COUNT (AUTO) 7.5 K/uL (4.8-10.8)
[2021-03-25 11:05] LABS: CALCIUM 9.4 mg/dL (8.4-11.0); CREATININE 0.9 mg/dL (0.55-1.30); POTASSIUM 4.2 mmol/L (3.5-5.1)
[2021-03-25 11:11] LABS: ALBUMIN 3.4 g/dL (3.4-4.8); TOTAL BILIRUBIN 0.3 mg/dL (0.0-1.0)
[2021-03-25] MEDS ORDERED: KETOROLAC TROMETHAMINE 15 MG VIAL IVP ONE (11:30)
[2021-03-25] MEDS ORDERED: NACL 0.9% 1,000 ML IV ONE (11:30)
[2021-03-25] MEDS ORDERED: ONDANSETRON HCL 4 MG/2 ML VIAL IVP ONE (11:30)
--- NOTE | 2021-03-25 11:52 | NUR ---
Pt consented for CT with contrast as ordered and signed
[2021-03-25] MEDS ORDERED: FAMOTIDINE 20 MG TABLET PO ONE (13:15)
[2021-03-25] MEDS ORDERED: MAG-AL HYDROX/SIMETH 30 ML UDC PO ONE (13:30)
[2021-03-25] MEDS ORDERED: ONDA4TAB5 PO (13:58)
[2021-03-25] MEDS ORDERED: SIME80TA15 PO (14:00)
[2021-03-25 14:04] VITALS: BP_SYST 108
--- NOTE | 2021-03-25 14:06 | NUR ---
Pt discharged home in NAD, VSS, steady gait, AAOx3, with aftercare and follow-up
[2021-03-25] MEDS ORDERED: KETOROLAC TROMETHAMINE 30 MG VIAL ONE (18:13)
[2021-03-25] MEDS ORDERED: FLUCONAZOLE 200 mg/ NS 100 ML IV ONE (18:30)
[2021-03-25] MEDS ORDERED: MORPHINE 4 MG INJ. 4 MG/ML VIAL ONE (18:31)
[2021-03-25] MEDS ORDERED: INSU100I52 SQ (20:21)
[2021-03-30] MEDS ORDERED: DIF100 PO (17:06)
[2021-03-30] MEDS ORDERED: LEVO750T45 PO (17:06)
== END 2021-03-25 14:05 | disposition home or self-care (01) ==
LOC: SED 10:07
DX: E11.65 Type 2 diabetes mellitus with hyperglycemia (principal); R10.84 Generalized abdominal pain; J45.909 Unspecified asthma, uncomplicated; Z91.018 Allergy to other foods; Z79.899 Other long term (current) drug therapy
CPT/HCPCS: 36415; 74177; 80053; 81002; 81025; 82962; 83690; 85025; 96361; 96374; 96375; 99285; J1450; J1885 ×2; J2270; J2405; J7030; Q9967

== ENCOUNTER 2021-04-08 15:26 | Emergency (ER) | payer MEDICAID, SELFPAY ==
[~2021-04-08] VITALS: Ht 167.6 cm; Wt 90.7 kg
[~2021-04-08 15:26] MED LIST changes: -ALBU2.5V7 INH; -CEPH500C2 PO; -CIPR500T5 PO; -DEC4 PO; +DIF100 PO; -FLUC100T41 PO; -IBUP-1971 PO; -IMO2 PO; +INSU100I52 SQ; -LEVO500T89 PO; +LEVO750T45 PO; -PRED20TA PO
[2021-04-08 15:35] VITALS: BP_SYST 125
--- NOTE | 2021-04-08 15:35 | NUR ---
Pt to bed 7 for evaluation. Pt triaged and gowned.
--- NOTE | 2021-04-08 15:38 | NUR ---
Pt AAO bib mother for pelvic pain 10/10 on pain scale. Pt was seen earlier this month and admitted for severe melissa vaginitis. Pt has history of asthma and diabetes. Pt reports that she ran out of medication and that her pelvic pain is back. Pt is emotionally upset and crying. V/S are stable.
--- NOTE | 2021-04-08 15:40 | NUR ---
Dr. Simmons at bedside to assess.
[2021-04-08] MEDS ORDERED: KETOROLAC TROMETHAMINE 60 MG/2 ML VIAL IM ONE (15:45)
[2021-04-08] MEDS ORDERED: LORazepam 1 MG TABLET PO ONE (15:45)
--- NOTE | 2021-04-08 15:55 | NUR ---
Lab at bedside for blood draw.
--- NOTE | 2021-04-08 15:58 | NUR ---
Urine specimen obtained, hcg negative, and urine was sent to lab for analysis.
--- NOTE | 2021-04-08 16:00 | NUR ---
Pt to CT scan by wheelchair with radiology staff.
--- NOTE | 2021-04-08 16:08 | NUR ---
Pt back from CT scan to [facility].
[2021-04-08 16:11] LABS: BASOPHILS # (AUTO) 0.2 K/uL (0.0-0.2); BASOPHILS % (AUTO) 2.1 % (0.0-2.0); EOSINOPHILS # (AUTO) 0.2 K/uL (0.0-0.4); EOSINOPHILS % (AUTO) 1.9 % (0.0-4.0); HEMATOCRIT 43.9 % (36-48); HEMOGLOBIN 14.9 g/dL (12.0-16.0); LYMPHOCYTES % (AUTO) 35.7 % (20.5-51.5); MEAN CORPUSCULAR HEMOGLOBIN 29 pg (27-31); MEAN CORPUSCULAR HGB CONC 34 % (32-36); MEAN CORPUSCULAR VOLUME 86 fL (79.0-98.0); MONOCYTES # (AUTO) 0.4 K/uL (0.0-1.0); MONOCYTES % (AUTO) 4.6 % (1.7-9.3); NEUTROPHILS # (AUTO) 4.7 K/uL (1.8-7.7); NEUTROPHILS % (AUTO) 55.7 % (40.0-70.0); PLATELET COUNT (AUTO) 183 K/uL (130-430); RED BLOOD CELL COUNT(AUTO) 5.13 MIL/uL (4.2-6.2); RED CELL DISTRIBUTION WIDTH 12.9 % (9.0-15.0); WHITE BLOOD COUNT (AUTO) 8.4 K/uL (4.8-10.8)
[2021-04-08 16:22] LABS: CREATININE 0.73 mg/dL (0.55-1.30); POTASSIUM 3.7 mmol/L (3.5-5.1)
[2021-04-08 16:26] LABS: PROTHROMBIN TIME 10.1 SECS (9.5-12.5)
[2021-04-08 16:27] LABS: ALBUMIN 3.8 g/dL (3.4-4.8); TOTAL BILIRUBIN 0.2 mg/dL (0.0-1.0)
[2021-04-08 16:36] LABS: C-REACTIVE PROTEIN QUANT 0.4 mg/dL (0-0.5)
[2021-04-08 16:55] LABS: BILIRUBIN,URINE NEGATIVE (NEGATIVE); CLARITY/URINE CLEAR (CLEAR); COLOR,URINE YELLOW (YELLOW); GLUCOSE,URINE 3+ (NEGATIVE); KETONES,URINE NEGATIVE (NEGATIVE); LEUKOCYTE ESTERASE ,URINE NEGATIVE (NEGATIVE); NITRITE, URINE NEGATIVE (NEGATIVE); PH,URINE 6.5 (5.0-8.0); PROTEIN URINE 1+ (NEGATIVE); UROBILINOGEN,URINE 0.2 (0.2-1.0)
[2021-04-08 16:58] LABS: BLOOD, URINE TRACE (NEGATIVE)
--- NOTE | 2021-04-08 17:00 | NUR ---
Pt resting quietly in no distress awaiting disposition.
[2021-04-08 17:09] LABS: BACTERIA,URINE MODERATE /HPF (None Seen)
[2021-04-08 17:10] LABS: YEAST,URINE Few /HPF (None Seen)
[2021-04-08] MEDS ORDERED: HYDR-3917 PO (17:22)
[2021-04-08] MEDS ORDERED: IBUP-1969 PO (17:22)
[2021-04-08 17:40] VITALS: BP_SYST 125
--- NOTE | 2021-04-08 17:40 | NUR ---
Patient given written and verbal discharge instructions and verbalizes understanding. Dr. Troy GANT MD discussed with patient the results and treatment provided. Patient in stable condition. ID arm band removed. Rx of Ibuprofen and [place] given. Patient educated on pain management and to follow up with PMD. Pain Scale 0/10. Opportunity for questions provided and answered. Medication side effect fact sheet provided.
== END 2021-04-08 17:40 | disposition home or self-care (01) ==
LOC: SED 15:26
DX: R10.2 Pelvic and perineal pain (principal); E11.9 Type 2 diabetes mellitus without complications; J45.909 Unspecified asthma, uncomplicated; Z91.018 Allergy to other foods; Z79.899 Other long term (current) drug therapy
CPT/HCPCS: 36415; 74176; 76376; 80053; 81000; 81025; 82150; 83605; 83690; 84703; 85025; 85610; 85730; 86140; 87086; 96372; 99284; J1885

== ENCOUNTER 2021-07-25 09:23 | Emergency (ER) | payer MEDICAID, SELFPAY ==
[~2021-07-25] VITALS: Ht 170.2 cm; Wt 90.7 kg
[~2021-07-25 09:23] MED LIST changes: +HYDR-3917 PO
--- NOTE | 2021-07-25 09:25 | NUR ---
Patient to ER bed 2 to gown for evaluation. Side rails up. Report given to Kaleigh.
[2021-07-25 09:32] VITALS: BP_SYST 137
--- NOTE | 2021-07-25 09:35 | NUR ---
ER at bedside examining patient.
--- NOTE | 2021-07-25 09:45 | NUR ---
Patient awake, alert and oriented x 3. Reporting C/P and SOB; in NAD upon face to face assessment. Reports PMH asthma and use of an inhaler. VSS on cardiac rn. EKG being completed at bedside. Awaiting futher dispo.
[2021-07-25 10:06] LABS: BASOPHILS % (AUTO) 0.6 % (0.0-2.0); EOSINOPHILS # (AUTO) 0.1 K/uL (0.0-0.4); HEMATOCRIT 41.9 % (36-48); HEMOGLOBIN 14.1 g/dL (12.0-16.0); LYMPHOCYTES # (AUTO) 2.1 K/uL (1.0-5.5); LYMPHOCYTES % (AUTO) 34.6 % (20.5-51.5); MEAN CORPUSCULAR HEMOGLOBIN 28 pg (27-31); MEAN CORPUSCULAR HGB CONC 34 % (32-36); MEAN CORPUSCULAR VOLUME 84 fL (79.0-98.0); MONOCYTES # (AUTO) 0.2 K/uL (0.0-1.0); MONOCYTES % (AUTO) 3.7 % (1.7-9.3); NEUTROPHILS # (AUTO) 3.7 K/uL (1.8-7.7); NEUTROPHILS % (AUTO) 60.1 % (40.0-70.0); PLATELET COUNT (AUTO) 177 K/uL (130-430); RED BLOOD CELL COUNT(AUTO) 5.01 MIL/uL (4.2-6.2); RED CELL DISTRIBUTION WIDTH 12.8 % (9.0-15.0); WHITE BLOOD COUNT (AUTO) 6.1 K/uL (4.8-10.8)
[2021-07-25] MEDS ORDERED: IPRATROPIUM BROM 0.5 MG/2.5 ML VIAL.NEB (ATROVENT) INH ONE ×2 (10:15→10:18)
[2021-07-25] MEDS ORDERED: ALBUTEROL SULFATE 0.083% 2.5 MG/3 ML VIAL.NEB INH ONE ×2 (10:15→10:17)
--- NOTE | 2021-07-25 10:23 | NUR ---
RT at bedside to provide breathing treatments as ordered
[2021-07-25 10:36] LABS: CALCIUM 8.8 mg/dL (8.4-11.0); CREATININE 0.5 mg/dL (0.55-1.30); POTASSIUM 4.1 mmol/L (3.5-5.1)
[2021-07-25 10:45] LABS: ALBUMIN 3.4 g/dL (3.4-4.8); TOTAL BILIRUBIN 0.3 mg/dL (0.0-1.0)
[2021-07-25 11:56] VITALS: BP_SYST 137
--- NOTE | 2021-07-25 11:59 | NUR ---
Patient given written and verbal discharge instructions and verbalizes understanding. ER MD discussed with patient the results and treatment provided. Patient in stable condition. ID arm band removed. Patient educated on pain management and to follow up with PMD. No pain noted. Opportunity for questions provided and answered. Medication side effect fact sheet provided.
== END 2021-07-25 11:56 | disposition home or self-care (01) ==
LOC: SED 09:23
DX: J98.01 Acute bronchospasm (principal); E11.9 Type 2 diabetes mellitus without complications; Z91.018 Allergy to other foods; Z79.899 Other long term (current) drug therapy
CPT/HCPCS: 36415; 71045; 80053; 84484; 84703; 85025; 93005; 94640; 99285; J7613

== ENCOUNTER 2021-09-13 21:38 | Emergency (ER) | payer MEDICAID, SELFPAY ==
[~2021-09-13] VITALS: Ht 170.2 cm; Wt 90.7 kg
[2021-09-13 21:57] VITALS: BP_SYST 133
--- NOTE | 2021-09-13 22:04 | NUR ---
Patient to ER bed 06 to gown for evaluation. Side rails up.
--- NOTE | 2021-09-13 22:09 | NUR ---
36 YR OLD AOX4 AMBULATORY WITH COMPLAINT OF LARGE VAGINAL LABIA CYST WITH REDNESS FOR THREE DAYS SEVERE PAIN 10/10. PT REPORTS PAIN TO TOUCH AND BEING UNABLE TO WEAR UNDERWEAR DUE TO PAIN. PT STATED SHE SHAVED A FEW DAYS AGO AND FELT THE CYST FORMING. UPON ASSESSMENT PT HAS CYST THE SIZE OF A GOLFBALL ON THE RIGHT OUTER LABIA. 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 PT REPORTS HISTORY OF DIABETES AND ASTHMA. MD AT THE BEDSIDE.
[2021-09-13] MEDS ORDERED: LIDOCAINE 1%, 20 ML MDV 20 ML ONE (22:18)
[2021-09-13] MEDS ORDERED: MORPHINE 4 MG INJ. 4 MG/ML VIAL IM ONE (23:15)
--- NOTE | 2021-09-14 | NUR ---
AT THE BEDSIDE TO EXPLAIN INCISION AND DRAINAGE PROCEDURE ANDIT ALTERNATIVES TO PT. RISKS WERE DISCUSSED, INCLUDING ANESTHETIC, RISK OF BLEEDING, AND LABIAL DAMAGE DUE TO INCISION. THE PT PROVIDED VERBAL CONSENT.
--- NOTE | 2021-09-14 00:17 | NUR ---
LACERATION TRAY WITH SCAPEL PLACED AT THE BEDSIDE, ACCOMPANIED MD TO PERFORM PROCEDURE. PT WAS POSITIONED PROPERLY. MD ADMINISTERED 15 LM OF 1% LIDOCAINE WAS USED AN ANESTHETIC INJECTED INTO RIGHT LABIA.THE SITE WAS PREPPED IN A STERILE FASHION, MD USED A SCALPEL TO MAKE 5MM SINGLE INCISION OVER THE MOST FIRM SWOLLEN AREA. A MODERATE AMOUNT OF PURULENT LIQUID WAS EXPRESSED FROM THE SITE. MINIMAL BLEEDING NOTED, THE WOUND WAS IRRIGATED WITH 500 ML OF NORMAL SALINE. AND CLEANED WITH GAUZE. PT OTLERATED THE PROCEDURE WELL, WITH NO COMPLICATIONS. THE WOUND WAS LEFT OPEN TO AIR, PT SITE CLEANED WITH CHLORHEXIDINE PER MD VERBAL ORDERS. THE MD ADVISED THE PT TO FOLLOW UP WITH OBGYN WITHIN TWO DAYS TO EVALUATE I&D WOUND. THE PATIENT VERBALIZED UNDERSTANDING.
[2021-09-14] MEDS ORDERED: LIDOCAINE 1%, 20 ML MDV 20 ML ONE (00:23)
[2021-09-14] MEDS ORDERED: IBUPROFEN 800 MG TABLET PO ONE (01:00)
[2021-09-14] MEDS ORDERED: MORPHINE 4 MG INJ. 4 MG/ML VIAL IM ONE (01:00)
[2021-09-14] MEDS ORDERED: ONDANSETRON 4 MG ODT TAB ONE (02:57)
--- NOTE | 2021-09-14 02:59 | NUR ---
Pt c/o nausea, vomited x 1 episode. No PIV access at this time. Zofran 4 mg ODT given.
[2021-09-14] MEDS ORDERED: ONDANSETRON 4 MG ODT TAB PO ONE (03:00)
[2021-09-14] MEDS ORDERED: NACL 0.9% 1,000 ML IV ONE (03:30)
[2021-09-14] MEDS ORDERED: ONDANSETRON HCL 4 MG/2 ML VIAL IVP ONE ×2 (04:00→07:00)
--- NOTE | 2021-09-14 04:00 | NUR ---
Pt c/o nausea. Zofran 4 mg given IVP per FRANKLIN Robison.
[2021-09-14] MEDS ORDERED: ONDANSETRON HCL 4 MG/2 ML VIAL ONE (04:08)
--- NOTE | 2021-09-14 04:14 | NUR ---
UNABLE TO OBTAIN URINE DUE TO MENSTRUAL PERIOD, NOTIFIED
[2021-09-14 04:36] LABS: CALCIUM 8.9 mg/dL (8.4-11.0); CREATININE 0.58 mg/dL (0.55-1.30); POTASSIUM 3.7 mmol/L (3.5-5.1)
[2021-09-14 04:41] LABS: EOSINOPHILS # (AUTO) 0.1 K/uL (0.0-0.4); EOSINOPHILS % (AUTO) 1.1 % (0.0-4.0); HEMOGLOBIN 13.3 g/dL (12.0-16.0); MEAN CORPUSCULAR HGB CONC 34 % (32-36); PLATELET COUNT (AUTO) 142 K/uL (130-430)
[2021-09-14 04:46] LABS: BASOPHILS % (AUTO) 0.4 % (0.0-2.0); HEMATOCRIT 39.7 % (36-48); LYMPHOCYTES # (AUTO) 2.2 K/uL (1.0-5.5); LYMPHOCYTES % (AUTO) 23.9 % (20.5-51.5); MEAN CORPUSCULAR HEMOGLOBIN 28 pg (27-31); MEAN CORPUSCULAR VOLUME 84 fL (79.0-98.0); MONOCYTES # (AUTO) 0.6 K/uL (0.0-1.0); MONOCYTES % (AUTO) 6.2 % (1.7-9.3); NEUTROPHILS # (AUTO) 6.2 K/uL (1.8-7.7); NEUTROPHILS % (AUTO) 68.4 % (40.0-70.0); RED BLOOD CELL COUNT(AUTO) 4.72 MIL/uL (4.2-6.2); RED CELL DISTRIBUTION WIDTH 12.9 % (9.0-15.0); WHITE BLOOD COUNT (AUTO) 9.1 K/uL (4.8-10.8)
[2021-09-14 04:47] LABS: ALBUMIN 3.3 g/dL (3.4-4.8); TOTAL BILIRUBIN 0.3 mg/dL (0.0-1.0)
[2021-09-14 05:05] VITALS: BP_SYST 148
--- NOTE | 2021-09-14 05:14 | NUR ---
PT REPORTS FEELING DIZZY AND UNABLE TO KEEP BALANCE, MD AWARE. PT PROVIDED WITH FLUIDS AND ICE. WILL MONITOR NEEDED
--- NOTE | 2021-09-14 05:20 | NUR ---
MD AT THE BEDSIDE TO RE EVALUATE PT, REGARDING NAUSEA WITH VOMITING. PT WAS INFORMED OF ELEVATED GLUCOSE. UNDERSTANDING VERBALIZED
[2021-09-14] MEDS ORDERED: SULF1TAB48 PO (05:51)
--- NOTE | 2021-09-14 06:10 | NUR ---
PT PROVIDED WITH DOMESTIC VIOLENCE RESOURCE LIST PER HER REQUEST. PT REPORTS RECENTLY FROM [facility]SE. PT WAS APPRECIATIVE.
--- NOTE | 2021-09-14 06:33 | NUR ---
PT PROVIDED WITH DISCHARGE PAPERWORK AND EDUCTAION REGARDING PRESCRIPTION. ENCOURAGED PT TO FOLLOW UP WITH OBGYN WITHIN 2 DAYS FOR A WOUND CHECK. PT ALSO ENCOUARGED TO INCLUDE SITZ BATHS FOR HOMECARE TO RELIEVE SWELLING. ALL QUESTIONS ANSWERED. UNDERSTANDING VERBALIZED. IV REMOVED WITH CATHETER INTACT. GAUZE APPLIED TO SITE. PT TOLERATED WELL. PT DISCHARGED WITH ALL BELONGINGS, AND PROVIDED WITH A PORTABLE BEDPAN FOR SITZ BATHS, PT IN STABLE CONDITION, AMBULATORY WITH STEADY GAIT.
== END 2021-09-14 06:37 | disposition home or self-care (01) ==
LOC: SED 21:38
DX: N75.1 Abscess of Bartholin's gland (principal); J45.909 Unspecified asthma, uncomplicated; E11.9 Type 2 diabetes mellitus without complications; Z88.8 Allergy status to other drugs, medicaments and biological substances; Z79.899 Other long term (current) drug therapy
CPT/HCPCS: 36415; 56420; 80053; 82962; 84702; 85025; 96360; 96372 ×2; 99284; J2001 ×2; J2270 ×2; J2405; J7030; Q0162

== ENCOUNTER 2021-09-16 19:33 | Emergency (ER) | payer MEDICAID ==
[~2021-09-16] VITALS: Ht 170.2 cm; Wt 90.7 kg
[~2021-09-16 19:33] MED LIST changes: +SULF1TAB48 PO
[2021-09-16 19:40] VITALS: BP_SYST 134
--- NOTE | 2021-09-16 19:41 | NUR ---
Patient to ER bed 7 to gown for evaluation. Side rails up. Report given to Trisha DAVIS.
--- NOTE | 2021-09-16 19:45 | NUR ---
Pt here for wound check. Brought self to in to ED couple days ago for vaginal abscess and was told by ED MD to return for a wound check. Pt reports 8/10 pain to site and she states that it appears to be bigger and thinks she might have another "bump" on the other labia.
--- NOTE | 2021-09-16 19:50 | NUR ---
ER at bedside examining patient.
--- NOTE | 2021-09-16 21:03 | NUR ---
Patient given written and verbal discharge instructions and verbalizes understanding. ER MD discussed with patient the results and treatment provided. Patient in stable condition. ID arm band removed. Patient educated on diagnosis and to follow up with PMD. Opportunity for questions provided and answered. Medication side effect fact sheet provided.
[2021-09-16 21:07] VITALS: BP_SYST 123
== END 2021-09-16 21:03 | disposition home or self-care (01) ==
LOC: SED 19:33
DX: Z48.00 Encounter for change or removal of nonsurgical wound dressing (principal); E11.9 Type 2 diabetes mellitus without complications; J45.909 Unspecified asthma, uncomplicated; Z91.018 Allergy to other foods; Z79.899 Other long term (current) drug therapy; Z79.84 Long term (current) use of oral hypoglycemic drugs
CPT/HCPCS: 99281

== ENCOUNTER 2021-09-24 06:19 | Emergency (ER) | payer MEDICAID ==
[~2021-09-24] VITALS: Ht 170.2 cm; Wt 90.7 kg
[2021-09-24 06:40] VITALS: BP_SYST 126
[2021-09-24] MEDS ORDERED: CEPH-548 PO ×2 (06:58→07:14)
[2021-09-24] MEDS ORDERED: PHENAZOPYRIDINE HCL 100 MG TABLET PO ONE (07:00)
[2021-09-24] MEDS ORDERED: cephALEXin 500 MG CAPSULE PO ONE (07:00)
[2021-09-24] MEDS ORDERED: PHEN-727 PO (07:14)
[2021-09-24 07:29] VITALS: BP_SYST 115
== END 2021-09-24 07:29 | disposition home or self-care (01) ==
LOC: SED 06:19
DX: N39.0 Urinary tract infection, site not specified (principal); E11.65 Type 2 diabetes mellitus with hyperglycemia; J45.909 Unspecified asthma, uncomplicated; Z91.018 Allergy to other foods; Z79.899 Other long term (current) drug therapy; Z79.84 Long term (current) use of oral hypoglycemic drugs
CPT/HCPCS: 81002; 81025; 82962; 99283

== ENCOUNTER 2022-01-05 17:39 | Emergency (ER) | payer MEDICAID ==
[~2022-01-05] VITALS: Ht 170.2 cm; Wt 90.7 kg
[~2022-01-05 17:39] MED LIST changes: +CEPH-548 PO; -DIF100 PO; -HYDR-3917 PO; -HYDR-4272 PO; -IBUP-1969 PO; -INSU100I52 SQ; -LEVO750T45 PO; -ONDA-8 TL; +PHEN-727 PO; -SULF1TAB48 PO
[2022-01-05 18:48] VITALS: BP_SYST 134
[2022-01-05 19:08] LABS: BILIRUBIN,URINE NEGATIVE (NEGATIVE); BLOOD, URINE NEGATIVE (NEGATIVE); CLARITY/URINE CLEAR (CLEAR); COLOR,URINE YELLOW (YELLOW); GLUCOSE,URINE 3+ (NEGATIVE); KETONES,URINE TRACE (NEGATIVE); LEUKOCYTE ESTERASE ,URINE NEGATIVE (NEGATIVE); NITRITE, URINE NEGATIVE (NEGATIVE); PROTEIN URINE NEGATIVE (NEGATIVE); UROBILINOGEN,URINE 0.2 (0.2-1.0)
[2022-01-05 19:45] LABS: BACTERIA,URINE FEW /HPF (None Seen); MUCUS,URINE None Seen /LPF (None Seen); RBC,URINE NONE SEEN /HPF (0-3); WBC,URINE NONE SEEN /HPF (0-3)
[2022-01-05] MEDS ORDERED: KETOROLAC TROMETHAMINE 60 MG/2 ML VIAL IM ONE (20:00)
--- NOTE | 2022-01-05 20:45 | NUR ---
speaking with patient at this time in triage lobby
[2022-01-05 21:06] LABS: CALCIUM 9.9 mg/dL (8.4-11.0); CREATININE 0.69 mg/dL (0.55-1.30)
[2022-01-05 21:11] LABS: BASOPHILS % (AUTO) 0.5 % (0.0-2.0); EOSINOPHILS # (AUTO) 0.1 K/uL (0.0-0.4); EOSINOPHILS % (AUTO) 1.6 % (0.0-4.0); HEMOGLOBIN 13.7 g/dL (12.0-16.0); LYMPHOCYTES # (AUTO) 3.7 K/uL (1.0-5.5); LYMPHOCYTES % (AUTO) 41.9 % (20.5-51.5); MEAN CORPUSCULAR HEMOGLOBIN 29 pg (27-31); MEAN CORPUSCULAR HGB CONC 34 % (32-36); MEAN CORPUSCULAR VOLUME 84 fL (79.0-98.0); MONOCYTES # (AUTO) 0.5 K/uL (0.0-1.0); NEUTROPHILS # (AUTO) 4.4 K/uL (1.8-7.7); PLATELET COUNT (AUTO) 184 K/uL (130-430); RED BLOOD CELL COUNT(AUTO) 4.76 MIL/uL (4.2-6.2); RED CELL DISTRIBUTION WIDTH 13.3 % (9.0-15.0); WHITE BLOOD COUNT (AUTO) 8.8 K/uL (4.8-10.8)
[2022-01-05 21:12] LABS: ALBUMIN 3.3 g/dL (3.4-4.8); TOTAL BILIRUBIN 0.2 mg/dL (0.0-1.0)
[2022-01-05] MEDS ORDERED: METR-154 PO (21:27)
[2022-01-05] MEDS ORDERED: NAPR-690 PO (21:33)
--- NOTE | 2022-01-05 21:40 | NUR ---
Patient given written and verbal discharge instructions and verbalizes understanding. ER MD discussed with patient the results and treatment provided. Patient in stable condition. ID arm band removed. Rx of Flagyl given. Pain Scale [10]. MD aware. Opportunity for questions provided and answered.
[2022-01-05 21:41] VITALS: BP_SYST 137
== END 2022-01-05 21:41 | disposition home or self-care (01) ==
LOC: SED 17:39
DX: N76.0 Acute vaginitis (principal); R10.30 Lower abdominal pain, unspecified; R30.0 Dysuria; R53.1 Weakness; B96.89 Other specified bacterial agents as the cause of diseases classified elsewhere; J45.909 Unspecified asthma, uncomplicated; I10 Essential (primary) hypertension; Z91.018 Allergy to other foods; Z79.899 Other long term (current) drug therapy
CPT/HCPCS: 99283; 80053; 81000; 85025; 87210; 36415; 96372; J1885

== ENCOUNTER 2022-03-27 04:38 | Emergency (ER) | payer MEDICAID ==
[~2022-03-27] VITALS: Ht 170.2 cm; Wt 90.7 kg
[~2022-03-27 04:38] MED LIST changes: +ALBMDI INH; +ASC500 PO; -CEPH-548 PO; +DEC1 PO; +DIF100 PO; +LACT1CAP57 PO; +MAGN400T10 PO; +MONT-40 PO; +Nystatin PO; -PHEN-727 PO; +PRO40 PO; +VITD2000 PO; +Zinc Sulfate PO
[2022-03-27 04:45] VITALS: BP_SYST 124
[2022-03-27 06:12] LABS: BASOPHILS # (AUTO) 0.1 K/uL (0.0-0.2); BASOPHILS % (AUTO) 0.7 % (0.0-2.0); EOSINOPHILS # (AUTO) 0.2 K/uL (0.0-0.4); EOSINOPHILS % (AUTO) 2.1 % (0.0-4.0); HEMATOCRIT 39.4 % (36-48); LYMPHOCYTES # (AUTO) 3.4 K/uL (1.0-5.5); LYMPHOCYTES % (AUTO) 41.3 % (20.5-51.5); MEAN CORPUSCULAR VOLUME 85 fL (79.0-98.0); MONOCYTES # (AUTO) 0.5 K/uL (0.0-1.0); MONOCYTES % (AUTO) 5.7 % (1.7-9.3); NEUTROPHILS # (AUTO) 4.1 K/uL (1.8-7.7); NEUTROPHILS % (AUTO) 50.2 % (40.0-70.0); PLATELET COUNT (AUTO) 212 K/uL (130-430); RED BLOOD CELL COUNT(AUTO) 4.62 MIL/uL (4.2-6.2); RED CELL DISTRIBUTION WIDTH 13.2 % (9.0-15.0); WHITE BLOOD COUNT (AUTO) 8.2 K/uL (4.8-10.8)
[2022-03-27 06:18] LABS: CALCIUM 8.4 mg/dL (8.4-11.0); CREATININE 0.71 mg/dL (0.55-1.30)
[2022-03-27 06:25] LABS: TOTAL BILIRUBIN 0.3 mg/dL (0.0-1.0)
[2022-03-27 06:29] LABS: HCG,QUAL RESULT NEGATIVE (NEGATIVE)
[2022-03-27 06:54] LABS: BILIRUBIN,URINE 1+ (NEGATIVE); BLOOD, URINE 3+ (NEGATIVE); CLARITY/URINE CLEAR (CLEAR); COLOR,URINE YELLOW (YELLOW); GLUCOSE,URINE TRACE (NEGATIVE); KETONES,URINE NEGATIVE (NEGATIVE); LEUKOCYTE ESTERASE ,URINE NEGATIVE (NEGATIVE); NITRITE, URINE NEGATIVE (NEGATIVE); PH,URINE 5.5 (5.0-8.0); PROTEIN URINE 1+ (NEGATIVE); UROBILINOGEN,URINE 0.2 (0.2-1.0)
[2022-03-27 07:38] LABS: BACTERIA,URINE None Seen /HPF (None Seen); RBC,URINE 20-50 /HPF (0-3)
[2022-03-27] MEDS ORDERED: IBUP-1969 PO (08:31)
[2022-03-27] MEDS ORDERED: HYDR-3917 PO (08:31)
[2022-03-27 08:55] VITALS: BP_SYST 122
== END 2022-03-27 08:54 | disposition home or self-care (01) ==
LOC: SED 04:38
DX: R10.2 Pelvic and perineal pain (principal); E11.9 Type 2 diabetes mellitus without complications; J45.909 Unspecified asthma, uncomplicated; Z91.018 Allergy to other foods; Z79.899 Other long term (current) drug therapy
CPT/HCPCS: 36415; 76376; 80053; 81000; 81025; 84703; 85025; 99284

== ENCOUNTER 2022-05-14 12:14 | Inpatient (IN) | payer MEDICAID ==
[~2022-05-14] VITALS: Ht 167.6 cm; Wt 90.7 kg
[~2022-05-14 12:14] MED LIST changes: +HYDR-3917 PO; +IBUP-1969 PO
[2022-05-14 12:23] VITALS: BP_SYST 122
[2022-05-14] MEDS ORDERED: ONDANSETRON HCL 4 MG/2 ML VIAL IVP ONE (15:15)
[2022-05-14] MEDS ORDERED: ACETAMINOPHEN 500 MG TABLET PO ONE (15:15)
[2022-05-14] MEDS ORDERED: NS 1000 ML IV.SOLN IV ONE (15:15)
[2022-05-14] MEDS ORDERED: DIPHENHYDRAMINE INJ 50 MG/ML VIAL IVP ONE (15:15)
[2022-05-14] MEDS ORDERED: NACL 0.9% 1,000 ML IV ONE (15:15)
[2022-05-14] MEDS ORDERED: KETOROLAC TROMETHAMINE 30 MG VIAL IVP ONE (15:15)
[2022-05-14 15:59] LABS: BILIRUBIN,URINE NEGATIVE (NEGATIVE); COLOR,URINE YELLOW (YELLOW); GLUCOSE,URINE 3+ (NEGATIVE); KETONES,URINE TRACE (NEGATIVE); LEUKOCYTE ESTERASE ,URINE 1+ (NEGATIVE); NITRITE, URINE NEGATIVE (NEGATIVE); PH,URINE 5.5 (5.0-8.0); PROTEIN URINE TRACE (NEGATIVE); UROBILINOGEN,URINE 0.2 (0.2-1.0)
[2022-05-14 16:08] LABS: BLOOD, URINE TRACE (NEGATIVE); CLARITY/URINE HAZY (CLEAR)
[2022-05-14 16:09] LABS: BACTERIA,URINE FEW /HPF (None Seen); MUCUS,URINE None Seen /LPF (None Seen); RBC,URINE 0-3 /HPF (0-3)
[2022-05-14] MEDS ORDERED: ALBUTEROL SULFATE 0.083% 2.5 MG/3 ML VIAL.NEB INH ONE ×2 (16:15→19:17)
[2022-05-14 16:38] LABS: BASOPHILS # (AUTO) 0.1 K/uL (0.0-0.2); BASOPHILS % (AUTO) 1.2 % (0.0-2.0); EOSINOPHILS # (AUTO) 0.1 K/uL (0.0-0.4); EOSINOPHILS % (AUTO) 0.9 % (0.0-4.0); HEMATOCRIT 43.9 % (36-48); HEMOGLOBIN 15.2 g/dL (12.0-16.0); LYMPHOCYTES # (AUTO) 0.8 K/uL (1.0-5.5); LYMPHOCYTES % (AUTO) 11.3 % (20.5-51.5); MEAN CORPUSCULAR HEMOGLOBIN 29 pg (27-31); MEAN CORPUSCULAR HGB CONC 35 % (32-36); MEAN CORPUSCULAR VOLUME 84 fL (79.0-98.0); MONOCYTES # (AUTO) 0.3 K/uL (0.0-1.0); MONOCYTES % (AUTO) 3.9 % (1.7-9.3); NEUTROPHILS # (AUTO) 6.2 K/uL (1.8-7.7); NEUTROPHILS % (AUTO) 82.7 % (40.0-70.0); PLATELET COUNT (AUTO) 158 K/uL (130-430); RED BLOOD CELL COUNT(AUTO) 5.23 MIL/uL (4.2-6.2); RED CELL DISTRIBUTION WIDTH 13.6 % (9.0-15.0); WHITE BLOOD COUNT (AUTO) 7.5 K/uL (4.8-10.8)
[2022-05-14 17:05] LABS: ANION GAP 9 (5-15); CALCIUM 9.5 mg/dL (8.4-11.0); CHLORIDE 100 mmol/L (98-107); GLUCOSE 303 mg/dL (70-99); UREA NITROGEN, BLOOD 12 mg/dL (8-21)
[2022-05-14] MEDS ORDERED: cefTRIAXone 1 GM in D5W 50 ML IV ONE (17:15)
[2022-05-14 17:32] LABS: ALANINE AMINOTRANSFERASE 31 U/L (12-78); ALBUMIN 3.7 g/dL (3.4-4.8); ASPARTATE AMINOTRANSFERASE 14 U/L (10-37); TOTAL BILIRUBIN 0.3 mg/dL (0.0-1.0)
[2022-05-14 17:34] LABS: CREATININE 0.76 mg/dL (0.55-1.30); GFR AFRICAN AMERICAN 111 mL/min (>90)
[2022-05-14] MEDS ORDERED: cefTRIAXone 1 GM VIAL ONE (18:21)
[2022-05-14] MEDS ORDERED: MORPHINE 2 MG/ML INJ. SYRINGE IVP PRN ×2 (19:15)
[2022-05-14] MEDS ORDERED: LORazepam 2 MG/ML VIAL IVP PRN (19:15)
[2022-05-14] MEDS ORDERED: ACETAMINOPHEN 325 MG TABLET PO PRN (19:15)
[2022-05-14] MEDS ORDERED: POTASSIUM CHLORIDE 20 MEQ TAB.PRT.SR PO PRN (19:15)
[2022-05-14] MEDS ORDERED: DOCUSATE SODIUM 100 MG CAPSULE PO PRN (19:15)
[2022-05-14] MEDS ORDERED: MAGNESIUM SULFATE 50 ML IV PRN (19:15)
[2022-05-14] MEDS ORDERED: IPRATROPIUM/ALBUTEROL SULFATE 3 ML AMPUL.NEB (DUONEB) INH PRN (19:15)
[2022-05-14] MEDS ORDERED: ZOLPIDEM TARTRATE 5 MG TABLET PO PRN (19:15)
[2022-05-14] MEDS ORDERED: cefTRIAXone 1 GM IVPB PREMIX 50 ML IV SCH (19:15)
[2022-05-14] MEDS ORDERED: MUPIROCIN 2% TOPICAL OINTMENT 22 GM NS PRN (19:15)
[2022-05-14] MEDS ORDERED: ONDANSETRON HCL 4 MG/2 ML VIAL IVP PRN (19:15)
[2022-05-14] MEDS ORDERED: DEXTROSE 50% JECT 50 ML DISP.SYRIN IVP PRN (19:15)
[2022-05-14] MEDS: NACL 0.9% 1,000 ML IV SCH (20:27)
[2022-05-14 22:30] VITALS: BP_SYST 112
[2022-05-14 23:00] VITALS: BP_SYST 61
[2022-05-15] MEDS: NACL 0.9% 1,000 ML IV SCH (03:35)
[2022-05-15 04:19] VITALS: BP_SYST 147
[2022-05-15] MEDS: INSULIN LISPRO SLIDING SCALE 100 UNITS/ML, 3 ML VIAL (humaLOG) SUBCUT PRN ×2 (07:00→12:06)
[2022-05-15] MEDS ORDERED: metFORMIN HCL 500 MG TABLET PO SCH (08:00)
[2022-05-15] MEDS ORDERED: BENZOCAINE/MENTHOL 1 EACH LOZENGE MM PRN (08:15)
[2022-05-15 08:22] LABS: BASOPHILS % (AUTO) 0.6 % (0.0-2.0); EOSINOPHILS # (AUTO) 0.1 K/uL (0.0-0.4); HEMATOCRIT 39.1 % (36-48); HEMOGLOBIN 13.4 g/dL (12.0-16.0); LYMPHOCYTES # (AUTO) 1.2 K/uL (1.0-5.5); LYMPHOCYTES % (AUTO) 20.8 % (20.5-51.5); MEAN CORPUSCULAR HEMOGLOBIN 29 pg (27-31); MEAN CORPUSCULAR HGB CONC 34 % (32-36); MEAN CORPUSCULAR VOLUME 84 fL (79.0-98.0); MONOCYTES # (AUTO) 0.5 K/uL (0.0-1.0); MONOCYTES % (AUTO) 9.1 % (1.7-9.3); NEUTROPHILS % (AUTO) 68.5 % (40.0-70.0); PLATELET COUNT (AUTO) 152 K/uL (130-430); RED BLOOD CELL COUNT(AUTO) 4.63 MIL/uL (4.2-6.2); RED CELL DISTRIBUTION WIDTH 13.4 % (9.0-15.0); WHITE BLOOD COUNT (AUTO) 5.8 K/uL (4.8-10.8)
[2022-05-15 08:51] LABS: CALCIUM 8.6 mg/dL (8.4-11.0); CREATININE 0.65 mg/dL (0.55-1.30)
[2022-05-15 09:25] VITALS: BP_SYST 108
[2022-05-15] MEDS ORDERED: LEVO-62 PO (10:01)
[2022-05-15 12:28] VITALS: BP_SYST 108
[2022-05-15] MEDS ORDERED: cefTRIAXone 1 GM IVPB PREMIX 50 ML IV SCH (17:00)
[2022-05-15] MEDS ORDERED: MONTELUKAST 10 MG TABLET PO SCH (18:00)
== END 2022-05-15 13:30 | disposition home or self-care (01) | DRG 720 ==
LOC: SED 12:14 → SMU 18:40
PROVIDERS: ADMIT General Practice; ATTEND General Practice
DX: A41.9 Sepsis, unspecified organism (principal); E11.65 Type 2 diabetes mellitus with hyperglycemia; N39.0 Urinary tract infection, site not specified; J44.9 Chronic obstructive pulmonary disease, unspecified; E66.9 Obesity, unspecified; F41.9 Anxiety disorder, unspecified; Z20.822 Contact with and (suspected) exposure to COVID-19; E56.9 Vitamin deficiency, unspecified; Z91.018 Allergy to other foods; Z79.899 Other long term (current) drug therapy; Z68.32 Body mass index [BMI] 32.0-32.9, adult
CPT/HCPCS: 36415; 71045; 80048; 80053; 81000; 82962; 83036; 83605; 83735; 84484; 85025; 87040; 87086; 93005; 94640; 99285; J0696; J1200; J1885; J2270; J2405; J7030; J7613

== ENCOUNTER 2022-07-14 13:50 | Emergency (ER) | payer BC ==
[~2022-07-14 13:50] MED LIST changes: +ACYC-133 PO; -DEC1 PO; +LEVO-62 PO; +METO-290 PO
[2022-07-14 14:00] VITALS: BP_SYST 152
[2022-07-14] MEDS ORDERED: MORPHINE 4 MG INJ. 4 MG/ML VIAL IM ONE (15:15)
[2022-07-14] MEDS ORDERED: HALOPERIDOL LACTATE 5 MG/ML VIAL IM ONE (15:15)
[2022-07-14] MEDS ORDERED: LORazepam 1 MG TABLET PO ONE (15:15)
[2022-07-14 15:43] LABS: BASOPHILS # (AUTO) 0.1 K/uL (0.0-0.2); BASOPHILS % (AUTO) 0.7 % (0.0-2.0); EOSINOPHILS # (AUTO) 0.1 K/uL (0.0-0.4); EOSINOPHILS % (AUTO) 1.3 % (0.0-4.0); HEMATOCRIT 42.7 % (36-48); HEMOGLOBIN 14.5 g/dL (12.0-16.0); LYMPHOCYTES % (AUTO) 32.5 % (20.5-51.5); MEAN CORPUSCULAR HEMOGLOBIN 29 pg (27-31); MEAN CORPUSCULAR HGB CONC 34 % (32-36); MEAN CORPUSCULAR VOLUME 85 fL (79.0-98.0); MONOCYTES # (AUTO) 0.6 K/uL (0.0-1.0); MONOCYTES % (AUTO) 6.6 % (1.7-9.3); NEUTROPHILS # (AUTO) 5.4 K/uL (1.8-7.7); NEUTROPHILS % (AUTO) 58.9 % (40.0-70.0); PLATELET COUNT (AUTO) 180 K/uL (130-430); RED BLOOD CELL COUNT(AUTO) 5.02 MIL/uL (4.2-6.2); RED CELL DISTRIBUTION WIDTH 13.3 % (9.0-15.0); WHITE BLOOD COUNT (AUTO) 9.1 K/uL (4.8-10.8)
[2022-07-14 15:47] LABS: ANION GAP 13 (5-15); CALCIUM 9.8 mg/dL (8.4-11.0); CHLORIDE 103 mmol/L (98-107); CREATININE 0.48 mg/dL (0.55-1.30); GFR AFRICAN AMERICAN 189 mL/min (>90); GLUCOSE 160 mg/dL (70-99); UREA NITROGEN, BLOOD 8 mg/dL (8-21)
[2022-07-14 15:51] LABS: ALANINE AMINOTRANSFERASE 40 U/L (12-78); ALBUMIN 3.7 g/dL (3.4-4.8); AMYLASE 16 U/L (0-100); ASPARTATE AMINOTRANSFERASE 16 U/L (10-37); C-REACTIVE PROTEIN QUANT 1.1 mg/dL (0-0.5); LIPASE 117 U/L (73-393); TOTAL BILIRUBIN 0.3 mg/dL (0.0-1.0)
[2022-07-14 15:54] LABS: ACETONE, SERUM NEGATIVE (NEGATIVE)
[2022-07-14 17:23] LABS: BILIRUBIN,URINE NEGATIVE (NEGATIVE); BLOOD, URINE NEGATIVE (NEGATIVE); CLARITY/URINE CLEAR (CLEAR); COLOR,URINE YELLOW (YELLOW); GLUCOSE,URINE 2+ (NEGATIVE); KETONES,URINE TRACE (NEGATIVE); LEUKOCYTE ESTERASE ,URINE NEGATIVE (NEGATIVE); NITRITE, URINE NEGATIVE (NEGATIVE); PROTEIN URINE 1+ (NEGATIVE); UROBILINOGEN,URINE 0.2 (0.2-1.0)
[2022-07-14 17:30] LABS: BACTERIA,URINE FEW /HPF (None Seen); MUCUS,URINE None Seen /LPF (None Seen); RBC,URINE NONE SEEN /HPF (0-3); WBC,URINE 0-3 /HPF (0-3)
[2022-07-14] MEDS ORDERED: IBUP-1969 PO ×2 (17:30→17:35)
[2022-07-14] MEDS ORDERED: HYDR-3917 PO ×2 (17:30→17:35)
[2022-07-14 17:34] LABS: BARBITURATE, URINE NEGATIVE (NEG <=200); BENZODIAZEPINE, URINE POSITIVE (NEG <=150); CANNABINOID, URINE NEGATIVE (NEG <=50); COCAINE, URINE NEGATIVE (NEG <=150); METHAMPHETAMINES SCREEN,URINE NEGATIVE (NEG <=500); OPIATE, URINE POSITIVE (NEG <=100); PHENCYCLIDINE SCREEN,URINE NEGATIVE (NEG <=25); UR TRICYCLIC ANTIDEPRESSANTS NEGATIVE (NEG <=300); URINE AMPHETAMINE NEGATIVE (NEG <=500); URINE METHADONE NEGATIVE (NEG <=200); URINE OXYCODONE SCREEN NEGATIVE (NEG <=100); URINE PROPOXYPHENE SCREEN NEGATIVE (NEG <=300)
[2022-07-14] MEDS ORDERED: ONDA-8 TL (18:13)
[2022-07-14 18:17] VITALS: BP_SYST 147
== END 2022-07-14 18:17 | disposition home or self-care (01) ==
LOC: SED 13:50
DX: R10.84 Generalized abdominal pain (principal); R11.0 Nausea; J45.909 Unspecified asthma, uncomplicated; E11.9 Type 2 diabetes mellitus without complications; Z91.018 Allergy to other foods; Z79.899 Other long term (current) drug therapy
CPT/HCPCS: 99283; 80307; 80053; 82009; 82150; 84703; 83690; 85025; 86140; 36415; 96372; 83605; 81000; J2270

== ENCOUNTER 2022-07-31 01:06 | Emergency (ER) | payer BC ==
[~2022-07-31] VITALS: Ht 170.2 cm; Wt 90.7 kg
[~2022-07-31 01:06] MED LIST changes: +ONDA-8 TL
[2022-07-31 01:15] VITALS: BP_SYST 118
--- NOTE | 2022-07-31 01:15 | NUR ---
DR. PATEL WITH PATIENT IN TRIAGE FOR MSE.
--- NOTE | 2022-07-31 01:20 | NUR ---
PT FROM HOME WITH C/O VAGINAL ABSCESS X 3 DAYS. PT STATES SHE IS HAS 9/10 PAIN AND DISCOMFORT WHEN WALKING. VSS.
--- NOTE | 2022-07-31 01:50 | NUR ---
Patient to ER bed 08 to gown for evaluation. Side rails up.
[2022-07-31 02:07] LABS: BILIRUBIN,URINE NEGATIVE (NEGATIVE); BLOOD, URINE 2+ (NEGATIVE); COLOR,URINE YELLOW (YELLOW); GLUCOSE,URINE 3+ (NEGATIVE); KETONES,URINE NEGATIVE (NEGATIVE); LEUKOCYTE ESTERASE ,URINE NEGATIVE (NEGATIVE); NITRITE, URINE NEGATIVE (NEGATIVE); PROTEIN URINE 1+ (NEGATIVE); UROBILINOGEN,URINE 0.2 (0.2-1.0)
[2022-07-31] MEDS ORDERED: HYDROmorphone 1 MG/ML INJ. CARTRIDGE IVP ONE (02:15)
[2022-07-31 02:26] LABS: CLARITY/URINE HAZY (CLEAR)
[2022-07-31 02:28] LABS: BACTERIA,URINE None Seen /HPF (None Seen); WBC,URINE 0-3 /HPF (0-3)
[2022-07-31] MEDS ORDERED: LIDOCAINE 1% 10 MG/ML, 20 ML MDV INJ ONE (02:30)
[2022-07-31] MEDS ORDERED: metroNIDAZOLE 500 mg/NS 100 ML IV ONE (03:30)
[2022-07-31] MEDS ORDERED: ONDANSETRON HCL 4 MG/2 ML VIAL ONE (03:54)
[2022-07-31] MEDS ORDERED: ONDANSETRON HCL 4 MG/2 ML VIAL IVP ONE (04:00)
[2022-07-31] MEDS ORDERED: NAPR-1172 PO (04:21)
[2022-07-31] MEDS ORDERED: ONDA-8 TL (04:21)
[2022-07-31] MEDS ORDERED: METR-154 PO (04:21)
[2022-07-31 05:00] VITALS: BP_SYST 118
--- NOTE | 2022-07-31 05:00 | NUR ---
Patient given written and verbal discharge instructions and verbalizes understanding. ER DR. PATEL discussed with patient the results and treatment provided. Patient in stable condition. ID arm band removed. IV catheter removed intact and dressing applied, no active bleeding. Rx of naproxen, zofran, and metronidazole given. Patient educated on pain management and to follow up with PMD. Pain Scale 0. Opportunity for questions provided and answered. Medication side effect fact sheet provided.
== END 2022-07-31 05:00 | disposition home or self-care (01) ==
LOC: SED 01:06
DX: N76.4 Abscess of vulva (principal); R10.2 Pelvic and perineal pain; J45.909 Unspecified asthma, uncomplicated; E11.9 Type 2 diabetes mellitus without complications; Z91.018 Allergy to other foods; Z79.899 Other long term (current) drug therapy
CPT/HCPCS: 99284; 56405; 96365; 96375; 81000; 87040; 87210; 36415; J2001; J3490; J2405; J1170

== ENCOUNTER 2022-09-05 17:26 | Emergency (ER) | payer BC ==
[~2022-09-05] VITALS: Ht 170.2 cm; Wt 90.7 kg
[~2022-09-05 17:26] MED LIST changes: +METR-154 PO; +NAPR-1172 PO
[2022-09-05 17:35] VITALS: BP_SYST 120
--- NOTE | 2022-09-05 17:54 | NUR ---
DR GUARDADO IN TRIAGE FOR EXAM
[2022-09-05] MEDS ORDERED: CORTEARS RIGHT EAR (18:06)
[2022-09-05] MEDS ORDERED: AMOX500C2 PO (18:06)
[2022-09-05] MEDS ORDERED: ALBMDI INH (18:06)
--- NOTE | 2022-09-05 18:26 | NUR ---
Patient given written and verbal discharge instructions and verbalizes understanding. ER MD discussed with patient the results and treatment provided. Patient in stable condition. ID arm band removed. Rx of ALUTEREOL, AMOXICILLIN, CORTISPORIN given. Patient educated on pain management and to follow up with PMD. Pain Scale . Opportunity for questions provided and answered. Medication side effect fact sheet provided.
[2022-09-05 18:28] VITALS: BP_SYST 120
== END 2022-09-05 18:28 | disposition home or self-care (01) ==
LOC: SED 17:26
DX: H60.91 Unspecified otitis externa, right ear (principal); J45.909 Unspecified asthma, uncomplicated; E11.9 Type 2 diabetes mellitus without complications; Z91.018 Allergy to other foods; Z79.899 Other long term (current) drug therapy
CPT/HCPCS: 99283

== ENCOUNTER 2022-10-23 17:16 | Emergency (ER) | payer BC ==
[~2022-10-23] VITALS: Ht 170.2 cm; Wt 90.7 kg
[~2022-10-23 17:16] MED LIST changes: +AMOX500C2 PO; +CORTEARS RIGHT EAR
[2022-10-23 17:37] VITALS: BP_SYST 127
[2022-10-23 19:40] LABS: BASOPHILS # (AUTO) 0.1 K/uL (0.0-0.2); BASOPHILS % (AUTO) 0.8 % (0.0-2.0); EOSINOPHILS # (AUTO) 0.2 K/uL (0.0-0.4); EOSINOPHILS % (AUTO) 2.2 % (0.0-4.0); LYMPHOCYTES # (AUTO) 3.8 K/uL (1.0-5.5); LYMPHOCYTES % (AUTO) 43.1 % (20.5-51.5); MEAN CORPUSCULAR HEMOGLOBIN 29 pg (27-31); MEAN CORPUSCULAR HGB CONC 34 % (32-36); MEAN CORPUSCULAR VOLUME 86 fL (79.0-98.0); MONOCYTES # (AUTO) 0.5 K/uL (0.0-1.0); MONOCYTES % (AUTO) 5.3 % (1.7-9.3); NEUTROPHILS # (AUTO) 4.3 K/uL (1.8-7.7); NEUTROPHILS % (AUTO) 48.6 % (40.0-70.0); PLATELET COUNT (AUTO) 192 K/uL (130-430); RED BLOOD CELL COUNT(AUTO) 4.87 MIL/uL (4.2-6.2); WHITE BLOOD COUNT (AUTO) 8.9 K/uL (4.8-10.8)
[2022-10-23] MEDS ORDERED: KETOROLAC TROMETHAMINE 30 MG VIAL IVP ONE (20:00)
[2022-10-23 20:05] LABS: CALCIUM 8.9 mg/dL (8.4-11.0); CREATININE 0.56 mg/dL (0.55-1.30)
[2022-10-23 20:07] LABS: BILIRUBIN,URINE NEGATIVE (NEGATIVE); BLOOD, URINE NEGATIVE (NEGATIVE); CLARITY/URINE SL CLOUDY (CLEAR); COLOR,URINE YELLOW (YELLOW); GLUCOSE,URINE 3+ (NEGATIVE); KETONES,URINE NEGATIVE (NEGATIVE); LEUKOCYTE ESTERASE ,URINE NEGATIVE (NEGATIVE); NITRITE, URINE POSITIVE (NEGATIVE); PROTEIN URINE NEGATIVE (NEGATIVE); UROBILINOGEN,URINE 0.2 (0.2-1.0)
[2022-10-23 20:10] LABS: ALBUMIN 3.5 g/dL (3.4-4.8); TOTAL BILIRUBIN 0.3 mg/dL (0.0-1.0)
[2022-10-23 20:20] LABS: BACTERIA,URINE MANY /HPF (None Seen); RBC,URINE 0-3 /HPF (0-3)
[2022-10-23] MEDS ORDERED: cefTRIAXone 1 GM in D5W 50 ML IV ONE (21:00)
[2022-10-23] MEDS ORDERED: MORPHINE 4 MG INJ. 4 MG/ML VIAL IVP ONE (21:00)
[2022-10-23] MEDS ORDERED: cefTRIAXone 1 GM VIAL ONE (21:56)
[2022-10-23] MEDS ORDERED: CEPH250C PO (22:07)
[2022-10-23 22:15] VITALS: BP_SYST 122
== END 2022-10-24 01:47 | disposition home or self-care (01) ==
LOC: SED 17:16
DX: N39.0 Urinary tract infection, site not specified (principal); R10.9 Unspecified abdominal pain; R11.0 Nausea; R63.0 Anorexia; J45.909 Unspecified asthma, uncomplicated; E11.9 Type 2 diabetes mellitus without complications; Z91.018 Allergy to other foods; Z79.899 Other long term (current) drug therapy
CPT/HCPCS: 99285; 74177; 96365; 96375; 80053; 81000; 83690; 85025; 87086; 36415; 76376; 81025; J0696; J1885; J2270; Q9967 ×2; 99283

== ENCOUNTER 2023-01-07 06:53 | Emergency (ER) | payer BC ==
[~2023-01-07] VITALS: Ht 170.2 cm; Wt 90.7 kg
[~2023-01-07 06:53] MED LIST changes: +CEPH250C PO
--- NOTE | 2023-01-07 06:56 | NUR ---
ER Dr. PATEL IN TRIAGE examining patient.
--- NOTE | 2023-01-07 07:03 | NUR ---
PATIENT PRESENTS WITH 9/10 LEFT FOOT PAIN AFTER HAVING HER FOOT STEPPED ON
[2023-01-07 07:04] VITALS: BP_SYST 116; PULSE 84; RESP 18; TEMP 96.6; O2SAT 98
--- NOTE | 2023-01-07 07:20 | NUR ---
Patient BIB self c/o left foot pain 03/03. Patient states her whole family slept in the living room d/t the heat & this is the only room in the house with A/C. Her 14 y/o son stepped on her foot @ 0100. Foot was lying on the side, inpact was to lateral side. Pain is to fourth & fifth toes, into foot & all the way into the lower leg. No tingling or loss of sensation. No discloration noted. Pulses present. Patient took Tylenol & applied ice packs with no relief. Med Hx DM, asthma. NKA. VSS.
[2023-01-07] MEDS ORDERED: NAPR-1172 PO (08:20)
[2023-01-07 08:25] VITALS: BP_SYST 116; PULSE 84; RESP 20; TEMP 96.3; O2SAT 98
--- NOTE | 2023-01-07 08:25 | NUR ---
Patient given written and verbal discharge instructions and verbalizes understanding. ER MD PATEL discussed with patient the results and treatment provided. Patient in stable condition. ID arm band removed. Rx of NAPROXEN given. Patient educated on pain management and to follow up with PMD. Pain Scale 3/10. Opportunity for questions provided and answered. Medication side effect fact sheet provided.
== END 2023-01-07 08:25 | disposition home or self-care (01) ==
LOC: SED 06:53
DX: S90.32XA Contusion of left foot, initial encounter (principal); J45.909 Unspecified asthma, uncomplicated; E11.9 Type 2 diabetes mellitus without complications; Z91.018 Allergy to other foods; Z79.899 Other long term (current) drug therapy; W22.8XXA Striking against or struck by other objects, initial encounter; Y93.89 Activity, other specified; Y92.89 Other specified places as the place of occurrence of the external cause; Y99.8 Other external cause status
CPT/HCPCS: 99283

== ENCOUNTER 2023-02-06 16:07 | Emergency (ER) | payer BC ==
[~2023-02-06] VITALS: Ht 170.2 cm; Wt 95.3 kg
[2023-02-06 16:16] VITALS: BP_SYST 119; PULSE 82; RESP 17; TEMP 97.1; O2SAT 97
[2023-02-06] MEDS ORDERED: KETOROLAC TROMETHAMINE 60 MG/2 ML VIAL IM ONE (17:00)
[2023-02-06] MEDS ORDERED: ACETAMINOPHEN 500 MG TABLET PO ONE (17:00)
[2023-02-06] MEDS ORDERED: ACET-2634 PO (17:26)
[2023-02-06] MEDS ORDERED: IBUP-1969 PO (17:26)
[2023-02-06 17:41] VITALS: BP_SYST 120; PULSE 82; RESP 17; TEMP 97.1; O2SAT 99
== END 2023-02-06 17:39 | disposition home or self-care (01) ==
LOC: SED 16:07
DX: M25.511 Pain in right shoulder (principal); J45.909 Unspecified asthma, uncomplicated; E11.9 Type 2 diabetes mellitus without complications; Z91.018 Allergy to other foods; Z79.899 Other long term (current) drug therapy
CPT/HCPCS: 99283; 73030; 96372; J1885

== ENCOUNTER 2023-02-12 00:32 | Emergency (ER) | payer BC ==
[~2023-02-12] VITALS: Ht 170.2 cm; Wt 90.7 kg
[~2023-02-12 00:32] MED LIST changes: +ACET-2634 PO
[2023-02-12 00:55] VITALS: BP_SYST 135; PULSE 97; RESP 19; TEMP 97.9; O2SAT 97
[2023-02-12] MEDS ORDERED: AUG875 PO (01:15)
[2023-02-12] MEDS ORDERED: TRAM50TA2 PO (01:15)
[2023-02-12] MEDS ORDERED: KETOROLAC TROMETHAMINE 60 MG/2 ML VIAL IM ONE (01:15)
[2023-02-12 01:46] VITALS: BP_SYST 135; PULSE 97; RESP 19; TEMP 97.9; O2SAT 97
== END 2023-02-12 01:46 | disposition home or self-care (01) ==
LOC: SED 00:32
DX: K08.89 Other specified disorders of teeth and supporting structures (principal); J45.909 Unspecified asthma, uncomplicated; E11.9 Type 2 diabetes mellitus without complications; Z91.018 Allergy to other foods; Z79.899 Other long term (current) drug therapy
CPT/HCPCS: 99283; 96372; J1885

== ENCOUNTER 2023-03-06 17:40 | Emergency (ER) | payer BC ==
[~2023-03-06] VITALS: Ht 170.2 cm; Wt 95.3 kg
[~2023-03-06 17:40] MED LIST changes: +AUG875 PO; +TRAM50TA2 PO
[2023-03-06 17:45] VITALS: PULSE 79; RESP 18; TEMP 98.3; O2SAT 95
[2023-03-06] MEDS ORDERED: HYDROcodone/ACETAMIN 10-325 MG TAB PO ONE (19:45)
[2023-03-06] MEDS ORDERED: IBUPROFEN 800 MG TABLET PO ONE (19:45)
[2023-03-06] MEDS ORDERED: AMOX-423 PO (19:51)
[2023-03-06] MEDS ORDERED: PERC10 PO (19:52)
[2023-03-06 20:49] VITALS: BP_SYST 130; PULSE 70; RESP 17; TEMP 97.9; O2SAT 97
[2023-03-07] MEDS ORDERED: ONDA-8 TL (17:42)
[2023-03-07] MEDS ORDERED: DICL50TA9 PO (17:42)
== END 2023-03-06 20:49 | disposition home or self-care (01) ==
LOC: SED 17:40
DX: K08.89 Other specified disorders of teeth and supporting structures (principal); J45.909 Unspecified asthma, uncomplicated; E11.9 Type 2 diabetes mellitus without complications; Z91.018 Allergy to other foods; Z79.899 Other long term (current) drug therapy
CPT/HCPCS: 99283

== ENCOUNTER 2023-03-07 13:26 | Emergency (ER) | payer BC ==
[~2023-03-07] VITALS: Ht 170.2 cm; Wt 95.3 kg
[2023-03-07 13:26] VITALS: BP_SYST 140; PULSE 74; RESP 19; TEMP 98; O2SAT 95
[~2023-03-07 13:26] MED LIST changes: +AMOX-423 PO; +PERC10 PO
[2023-03-07] MEDS ORDERED: METOCLOPRAMIDE HCL 10 MG/2 ML VIAL IVP ONE (14:15)
[2023-03-07] MEDS ORDERED: DIPHENHYDRAMINE INJ 50 MG/ML VIAL IVP ONE (14:15)
[2023-03-07] MEDS ORDERED: NACL 0.9% 2,000 ML IV ONE (14:15)
[2023-03-07] MEDS ORDERED: NACL 0.9% 1,000 ML IV ONE (14:15)
[2023-03-07] MEDS ORDERED: ASPIRIN 81 MG TAB.CHEW PO ONE (14:15)
[2023-03-07 14:31] LABS: BASOPHILS # (AUTO) 0.1 K/uL (0.0-0.2); BASOPHILS % (AUTO) 0.5 % (0.0-2.0); EOSINOPHILS # (AUTO) 0.1 K/uL (0.0-0.4); HEMOGLOBIN 13.1 g/dL (12.0-16.0); LYMPHOCYTES # (AUTO) 3.2 K/uL (1.0-5.5); LYMPHOCYTES % (AUTO) 29.4 % (20.5-51.5); MEAN CORPUSCULAR HEMOGLOBIN 28 pg (27-31); MEAN CORPUSCULAR HGB CONC 33 % (32-36); MEAN CORPUSCULAR VOLUME 86 fL (79.0-98.0); MONOCYTES # (AUTO) 0.6 K/uL (0.0-1.0); MONOCYTES % (AUTO) 5.1 % (1.7-9.3); NEUTROPHILS # (AUTO) 7.1 K/uL (1.8-7.7); PLATELET COUNT (AUTO) 178 K/uL (130-430); RED BLOOD CELL COUNT(AUTO) 4.64 MIL/uL (4.2-6.2); RED CELL DISTRIBUTION WIDTH 13.3 % (9.0-15.0)
[2023-03-07 14:34] LABS: SERUM HCG (QUALITATIVE) NEGATIVE (NEGATIVE)
[2023-03-07 14:39] LABS: ANION GAP 8 (5-15); CARBON DIOXIDE 24 mmol/L (23-29); CHLORIDE 99 mmol/L (98-107); CREATININE 0.84 mg/dL (0.55-1.30); GFR AFRICAN AMERICAN 99 mL/min (>90); GFR NON AFRICAN-AMERICAN 82 mL/min (>90); GLUCOSE 340 mg/dL (74-106); POTASSIUM 3.8 mmol/L (3.5-5.1); SODIUM SERUM 131 mmol/L (136-145); UREA NITROGEN, BLOOD 11 mg/dL (8-21)
[2023-03-07 14:45] LABS: ALANINE AMINOTRANSFERASE 20 U/L (12-78); ALBUMIN 3.6 g/dL (3.4-4.8); ASPARTATE AMINOTRANSFERASE 8 U/L (10-37); LIPASE 133 U/L (73-393); TOTAL BILIRUBIN 0.4 mg/dL (0.0-1.0)
[2023-03-07] MEDS ORDERED: KETOROLAC TROMETHAMINE 30 MG VIAL IVP ONE (16:00)
[2023-03-07 16:55] LABS: BILIRUBIN,URINE NEGATIVE (NEGATIVE); BLOOD, URINE NEGATIVE (NEGATIVE); CLARITY/URINE Clear (CLEAR); COLOR,URINE YELLOW (YELLOW); GLUCOSE,URINE 2+ (NEGATIVE); KETONES,URINE NEGATIVE (NEGATIVE); LEUKOCYTE ESTERASE ,URINE NEGATIVE (NEGATIVE); NITRITE, URINE NEGATIVE (NEGATIVE); PH,URINE 6.5 (5.0-8.0); PROTEIN URINE NEGATIVE (NEGATIVE); UROBILINOGEN,URINE 0.2 (0.2-1.0)
[2023-03-07] MEDS ORDERED: ONDA-8 TL (17:42)
[2023-03-07] MEDS ORDERED: DICL50TA9 PO (17:42)
[2023-03-07 17:53] VITALS: BP_SYST 117; PULSE 71; RESP 18; TEMP 98; O2SAT 98
== END 2023-03-07 17:52 | disposition home or self-care (01) ==
LOC: SED 13:26
DX: E11.65 Type 2 diabetes mellitus with hyperglycemia (principal); K02.9 Dental caries, unspecified; R11.2 Nausea with vomiting, unspecified; J45.909 Unspecified asthma, uncomplicated; Z91.018 Allergy to other foods; Z79.899 Other long term (current) drug therapy
CPT/HCPCS: 99285; 96374; 71045; 96361; 96375; 80053; 82962; 84703; 83880; 83690; 85025; 84484; 36415; 93005; 81025; 81003; J1200; J1885; J2765; J7030

== ENCOUNTER 2023-03-18 16:52 | Emergency (ER) | payer BC ==
[~2023-03-18] VITALS: Ht 170.2 cm; Wt 90.7 kg
[~2023-03-18 16:52] MED LIST changes: +DICL50TA9 PO
[2023-03-18 16:58] VITALS: BP_SYST 135; PULSE 78; RESP 18; TEMP 98.3; O2SAT 98
[2023-03-18 17:30] LABS: BILIRUBIN,URINE NEGATIVE (NEGATIVE); BLOOD, URINE NEGATIVE (NEGATIVE); CLARITY/URINE Clear (CLEAR); COLOR,URINE YELLOW (YELLOW); GLUCOSE,URINE 3+ (NEGATIVE); LEUKOCYTE ESTERASE ,URINE NEGATIVE (NEGATIVE); NITRITE, URINE NEGATIVE (NEGATIVE); PROTEIN URINE NEGATIVE (NEGATIVE); UROBILINOGEN,URINE 0.2 (0.2-1.0)
[2023-03-18 17:42] LABS: KETONES,URINE TRACE (NEGATIVE)
[2023-03-18 17:44] LABS: BACTERIA,URINE RARE /HPF (None Seen); MUCUS,URINE None Seen /LPF (None Seen); RBC,URINE 0-3 /HPF (0-3); WBC,URINE NONE SEEN /HPF (0-3)
[2023-03-18 18:13] LABS: BASOPHILS % (AUTO) 0.2 % (0.0-2.0); EOSINOPHILS % (AUTO) 0.1 % (0.0-4.0); HEMATOCRIT 39.1 % (36-48); LYMPHOCYTES # (AUTO) 1.3 K/uL (1.0-5.5); LYMPHOCYTES % (AUTO) 14.4 % (20.5-51.5); MEAN CORPUSCULAR HEMOGLOBIN 28 pg (27-31); MEAN CORPUSCULAR HGB CONC 33 % (32-36); MEAN CORPUSCULAR VOLUME 86 fL (79.0-98.0); MONOCYTES # (AUTO) 0.1 K/uL (0.0-1.0); MONOCYTES % (AUTO) 1.4 % (1.7-9.3); NEUTROPHILS # (AUTO) 7.6 K/uL (1.8-7.7); NEUTROPHILS % (AUTO) 83.9 % (40.0-70.0); PLATELET COUNT (AUTO) 258 K/uL (130-430); RED BLOOD CELL COUNT(AUTO) 4.57 MIL/uL (4.2-6.2); RED CELL DISTRIBUTION WIDTH 13.2 % (9.0-15.0)
[2023-03-18 18:18] LABS: ACETONE, SERUM NEGATIVE (NEGATIVE)
[2023-03-18 18:24] LABS: ANION GAP 11 (5-15); CALCIUM 9.3 mg/dL (8.4-11.0); CARBON DIOXIDE 25 mmol/L (23-29); CHLORIDE 100 mmol/L (98-107); CREATININE 1.23 mg/dL (0.55-1.30); GFR AFRICAN AMERICAN 64 mL/min (>90); GLUCOSE 308 mg/dL (74-106); POTASSIUM 4.1 mmol/L (3.5-5.1); SODIUM SERUM 136 mmol/L (136-145); UREA NITROGEN, BLOOD 11 mg/dL (8-21)
[2023-03-18 18:29] LABS: ALANINE AMINOTRANSFERASE 34 U/L (12-78); ALBUMIN 3.7 g/dL (3.4-4.8); ASPARTATE AMINOTRANSFERASE 17 U/L (10-37); TOTAL BILIRUBIN 0.3 mg/dL (0.0-1.0); TOTAL PROTEIN, SERUM 8.7 g/dL (6.4-8.3)
[2023-03-18] MEDS ORDERED: NACL 0.9% 1,000 ML IV ONE (19:15)
[2023-03-18] MEDS ORDERED: IPRATROPIUM/ALBUTEROL SULFATE 3 ML AMPUL.NEB (DUONEB) INH ONE (19:15)
[2023-03-18 19:39] LABS: INFLUENZA TYPE A negative (NEGATIVE); INFLUENZA TYPE B NEGATIVE (NEGATIVE)
[2023-03-18] MEDS ORDERED: INSULIN REGULAR, HUMAN 100 UNITS/ML, 3 ML VIAL SUBCUT ONE (20:00)
[2023-03-18] MEDS ORDERED: ALBMDI INH (20:19)
[2023-03-18] MEDS ORDERED: KETOROLAC TROMETHAMINE 30 MG VIAL IVP ONE (20:45)
[2023-03-18 23:07] VITALS: BP_SYST 121; PULSE 91; RESP 16; TEMP 98.7; O2SAT 95
== END 2023-03-18 22:01 | disposition home or self-care (01) ==
LOC: SED 16:52
DX: E11.65 Type 2 diabetes mellitus with hyperglycemia (principal); J45.909 Unspecified asthma, uncomplicated; Z91.018 Allergy to other foods; Z79.899 Other long term (current) drug therapy; Z20.822 Contact with and (suspected) exposure to COVID-19
CPT/HCPCS: 99285; 96374; 71045; 96361; 87426; 80053; 81000; 82009; 85025; 84484; 36415; 93005; 94640; 81025; 87804 ×2; 82962; J1885; J7030

== ENCOUNTER 2023-04-14 11:59 | Emergency (ER) | payer OTHER, BC ==
[~2023-04-14] VITALS: Ht 167.6 cm; Wt 113.4 kg
[2023-04-14 12:00] VITALS: BP_SYST 142; PULSE 79; RESP 16; TEMP 98.1; O2SAT 100
[2023-04-14] MEDS ORDERED: MORPHINE 4 MG INJ. 4 MG/ML VIAL IVP ONE (12:15)
== END 2023-04-14 15:14 | disposition home or self-care (01) ==
LOC: SED 11:59
DX: S60.222A Contusion of left hand, initial encounter (principal); S39.91XA Unspecified injury of abdomen, initial encounter; K80.20 Calculus of gallbladder without cholecystitis without obstruction; J45.909 Unspecified asthma, uncomplicated; E11.9 Type 2 diabetes mellitus without complications; Z91.018 Allergy to other foods; Z79.4 Long term (current) use of insulin; Z79.899 Other long term (current) drug therapy; W01.198A Fall on same level from slipping, tripping and stumbling with subsequent striking against other object, initial encounter; Y93.89 Activity, other specified; Y92.89 Other specified places as the place of occurrence of the external cause; Y99.8 Other external cause status
CPT/HCPCS: 99285; 71250; 96374; 73120; 76376; 74176; J2270

== ENCOUNTER 2023-04-16 16:44 | Emergency (ER) | payer BC, OTHER ==
[~2023-04-16] VITALS: Ht 167.6 cm; Wt 99.8 kg
[2023-04-16 16:58] VITALS: BP_SYST 156; PULSE 88; RESP 20; TEMP 98.1; O2SAT 97
[2023-04-16] MEDS ORDERED: MORPHINE 4 MG INJ. 4 MG/ML VIAL IVP ONE (17:15)
[2023-04-16] MEDS ORDERED: NACL 0.9% 1,000 ML IV ONE (17:15)
[2023-04-16 17:39] LABS: BASOPHILS # (AUTO) 0.1 K/uL (0.0-0.2); BASOPHILS % (AUTO) 0.5 % (0.0-2.0); EOSINOPHILS # (AUTO) 0.2 K/uL (0.0-0.4); EOSINOPHILS % (AUTO) 1.7 % (0.0-4.0); HEMOGLOBIN 13.6 g/dL (12.0-16.0); LYMPHOCYTES # (AUTO) 4.1 K/uL (1.0-5.5); LYMPHOCYTES % (AUTO) 41.6 % (20.5-51.5); MEAN CORPUSCULAR HEMOGLOBIN 28 pg (27-31); MEAN CORPUSCULAR HGB CONC 33 % (32-36); MEAN CORPUSCULAR VOLUME 84 fL (79.0-98.0); MONOCYTES # (AUTO) 0.5 K/uL (0.0-1.0); MONOCYTES % (AUTO) 4.8 % (1.7-9.3); NEUTROPHILS # (AUTO) 5.1 K/uL (1.8-7.7); NEUTROPHILS % (AUTO) 51.4 % (40.0-70.0); PLATELET COUNT (AUTO) 245 K/uL (130-430); RED BLOOD CELL COUNT(AUTO) 4.88 MIL/uL (4.2-6.2); RED CELL DISTRIBUTION WIDTH 12.9 % (9.0-15.0); WHITE BLOOD COUNT (AUTO) 9.9 K/uL (4.8-10.8)
[2023-04-16 17:40] LABS: CALCIUM 9.8 mg/dL (8.4-11.0); CREATININE 0.66 mg/dL (0.55-1.30); POTASSIUM 3.9 mmol/L (3.5-5.1)
[2023-04-16 17:51] LABS: ALBUMIN 3.6 g/dL (3.4-4.8); TOTAL BILIRUBIN 0.2 mg/dL (0.0-1.0); TOTAL PROTEIN, SERUM 8.8 g/dL (6.4-8.3)
[2023-04-16] MEDS ORDERED: KETOROLAC TROMETHAMINE 30 MG VIAL IVP ONE (18:45)
[2023-04-16] MEDS ORDERED: NABU-140 PO (19:11)
[2023-04-16 20:45] VITALS: BP_SYST 116; PULSE 67; RESP 16; TEMP 98.3; O2SAT 95
== END 2023-04-16 20:45 | disposition home or self-care (01) ==
LOC: SED 16:44
DX: R10.33 Periumbilical pain (principal); N94.6 Dysmenorrhea, unspecified; R11.2 Nausea with vomiting, unspecified; R50.9 Fever, unspecified; J45.909 Unspecified asthma, uncomplicated; E11.9 Type 2 diabetes mellitus without complications; Z91.018 Allergy to other foods; Z79.899 Other long term (current) drug therapy
CPT/HCPCS: 99285; 74177; 96374; 96361; 96375; 80053; 82962; 84702; 83690; 85025; 36415; 76376; J1885; J2270; Q9967; J7030

== ENCOUNTER 2023-07-13 18:51 | Emergency (ER) | payer BC ==
[~2023-07-13] VITALS: Ht 170.2 cm; Wt 88.5 kg
[~2023-07-13 18:51] MED LIST changes: +NABU-140 PO
[2023-07-13 18:52] VITALS: BP_SYST 153; PULSE 76; RESP 18; TEMP 97.5; O2SAT 97
[2023-07-13] MEDS ORDERED: methylPREDNISolone SOD SUCC/PF 62.5 MG/ML VIAL IVP ONE (19:00)
[2023-07-13] MEDS ORDERED: IPRATROPIUM/ALBUTEROL SULFATE 3 ML AMPUL.NEB (DUONEB) INH ONE (19:00)
[2023-07-13 19:38] LABS: BASOPHILS % (AUTO) 0.5 % (0.0-2.0); EOSINOPHILS # (AUTO) 0.1 K/uL (0.0-0.4); EOSINOPHILS % (AUTO) 1.2 % (0.0-4.0); HEMATOCRIT 40.7 % (36-48); HEMOGLOBIN 13.9 g/dL (12.0-16.0); LYMPHOCYTES # (AUTO) 2.2 K/uL (1.0-5.5); LYMPHOCYTES % (AUTO) 39.9 % (20.5-51.5); MEAN CORPUSCULAR HEMOGLOBIN 29 pg (27-31); MEAN CORPUSCULAR HGB CONC 34 % (32-36); MEAN CORPUSCULAR VOLUME 85 fL (79.0-98.0); MONOCYTES # (AUTO) 0.5 K/uL (0.0-1.0); MONOCYTES % (AUTO) 8.8 % (1.7-9.3); NEUTROPHILS # (AUTO) 2.7 K/uL (1.8-7.7); NEUTROPHILS % (AUTO) 49.6 % (40.0-70.0); PLATELET COUNT (AUTO) 204 K/uL (130-430); RED BLOOD CELL COUNT(AUTO) 4.81 MIL/uL (4.2-6.2); RED CELL DISTRIBUTION WIDTH 14.1 % (9.0-15.0); WHITE BLOOD COUNT (AUTO) 5.5 K/uL (4.8-10.8)
[2023-07-13 19:44] LABS: INFLUENZA TYPE A Negative (NEGATIVE); INFLUENZA TYPE B NEGATIVE (NEGATIVE)
[2023-07-13 19:45] LABS: ANION GAP 7 (5-15); CALCIUM 9.3 mg/dL (8.4-11.0); CARBON DIOXIDE 28 mmol/L (23-29); CHLORIDE 105 mmol/L (98-107); CREATININE 0.74 mg/dL (0.55-1.30); GFR AFRICAN AMERICAN 114 mL/min (>90); GLUCOSE 254 mg/dL (74-106); POTASSIUM 3.6 mmol/L (3.5-5.1); SODIUM SERUM 140 mmol/L (136-145); UREA NITROGEN, BLOOD 14 mg/dL (8-21)
[2023-07-13 19:51] LABS: GFR NON AFRICAN-AMERICAN 94 mL/min (>90)
[2023-07-13] MEDS ORDERED: CEFU250T85 PO (20:30)
[2023-07-13] MEDS ORDERED: METH-776 PO (20:30)
[2023-07-13] MEDS ORDERED: ALBMDI INH (20:30)
[2023-07-13 20:41] VITALS: BP_SYST 153; PULSE 76; RESP 18; TEMP 97.5; O2SAT 98
== END 2023-07-13 20:41 | disposition home or self-care (01) ==
LOC: SED 18:51
DX: J45.909 Unspecified asthma, uncomplicated (principal); R05.9 Cough, unspecified; R07.9 Chest pain, unspecified; E11.9 Type 2 diabetes mellitus without complications; Z91.018 Allergy to other foods; Z79.899 Other long term (current) drug therapy; Z20.822 Contact with and (suspected) exposure to COVID-19
CPT/HCPCS: 99285; 71045; 87426; 80048; 85025; 84484; 36415; 93005; 94640; 96372; 87804 ×2; J2930

== ENCOUNTER 2024-02-17 15:40 | Emergency (ER) | payer BC ==
[~2024-02-17] VITALS: Ht 170.2 cm; Wt 87.1 kg
[~2024-02-17 15:40] MED LIST changes: +CEFU250T85 PO; +METH-776 PO; +NITR-85 PO
[2024-02-17 16:15] VITALS: BP_SYST 125; PULSE 76; RESP 22; TEMP 98.1; O2SAT 96
[2024-02-17 16:56] LABS: BILIRUBIN,URINE NEGATIVE (NEGATIVE); BLOOD, URINE NEGATIVE (NEGATIVE); CLARITY/URINE CLEAR (CLEAR); COLOR,URINE YELLOW (YELLOW); GLUCOSE,URINE 2+ (NEGATIVE); KETONES,URINE NEGATIVE (NEGATIVE); LEUKOCYTE ESTERASE ,URINE TRACE (NEGATIVE); NITRITE, URINE NEGATIVE (NEGATIVE); PH,URINE 6.5 (5.0-8.0); PROTEIN URINE 1+ (NEGATIVE); UROBILINOGEN,URINE 0.2 (0.2-1.0)
[2024-02-17 16:57] LABS: BACTERIA,URINE RARE /HPF (None Seen); MUCUS,URINE None Seen /LPF (None Seen); RBC,URINE NONE SEEN /HPF (0-3)
[2024-02-17 16:58] LABS: HCG,QUAL RESULT NEGATIVE (NEGATIVE)
[2024-02-17] MEDS: KETOROLAC TROMETHAMINE 60 MG/2 ML VIAL IM ONE (17:19)
[2024-02-17] MEDS: cephALEXin 500 MG CAPSULE PO ONE (17:29)
[2024-02-17] MEDS: PHENAZOPYRIDINE HCL 100 MG TABLET PO ONE (17:29)
[2024-02-17] MEDS ORDERED: CEPH-548 PO (17:38)
[2024-02-17] MEDS ORDERED: IBUP-1969 PO (17:38)
[2024-02-17] MEDS ORDERED: PHEN-726 PO (17:38)
[2024-02-17 17:57] VITALS: BP_SYST 125; PULSE 76; RESP 22; TEMP 98.1; O2SAT 96
== END 2024-02-17 17:57 | disposition home or self-care (01) ==
LOC: SED 15:40
DX: N12 Tubulo-interstitial nephritis, not specified as acute or chronic (principal); R10.9 Unspecified abdominal pain; R30.0 Dysuria; Z91.018 Allergy to other foods; J45.909 Unspecified asthma, uncomplicated; E11.9 Type 2 diabetes mellitus without complications; F41.9 Anxiety disorder, unspecified; Z79.899 Other long term (current) drug therapy; Z79.2 Long term (current) use of antibiotics
CPT/HCPCS: 99283; 81001; 84703; 87086; 96372; J1885; 81000; 81015

== ENCOUNTER 2024-03-06 15:28 | Emergency (ER) | payer BC ==
[~2024-03-06] VITALS: Ht 170.2 cm; Wt 85.7 kg
[~2024-03-06 15:28] MED LIST changes: +CEPH-548 PO; +PHEN-726 PO
[2024-03-06 15:47] VITALS: BP_SYST 119; PULSE 81; RESP 16; TEMP 98.1; O2SAT 98
[2024-03-06] MEDS: BACITRACIN 1 GM OINT TP ONE (17:53)
[2024-03-06] MEDS: KETAMINE HCL IN 0.9 % NACL 50 MG/5 ML SYRINGE IV ONE (17:53)
[2024-03-06] MEDS: DIPHTH,PERTUSS(ACELL),TET VAC 0.5 ML VIAL (Tdap) I.M. ONE (18:23)
[2024-03-06] MEDS ORDERED: INSULIN GLARGINE 100 UNITS/ML, 10 ML VIAL ONE (18:39)
[2024-03-06 19:05] LABS: BASOPHILS % (AUTO) 0.5 % (0.0-2.0); EOSINOPHILS # (AUTO) 0.2 K/uL (0.0-0.4); EOSINOPHILS % (AUTO) 1.7 % (0.0-4.0); HEMATOCRIT 38.1 % (36-48); LYMPHOCYTES # (AUTO) 2.9 K/uL (1.0-5.5); LYMPHOCYTES % (AUTO) 30.9 % (20.5-51.5); MEAN CORPUSCULAR HEMOGLOBIN 29 pg (27-31); MEAN CORPUSCULAR HGB CONC 34 % (32-36); MEAN CORPUSCULAR VOLUME 84 fL (79.0-98.0); MONOCYTES # (AUTO) 0.6 K/uL (0.0-1.0); MONOCYTES % (AUTO) 6.2 % (1.7-9.3); NEUTROPHILS # (AUTO) 5.7 K/uL (1.8-7.7); NEUTROPHILS % (AUTO) 60.7 % (40.0-70.0); PLATELET COUNT (AUTO) 189 K/uL (130-430); RED BLOOD CELL COUNT(AUTO) 4.51 MIL/uL (4.2-6.2); RED CELL DISTRIBUTION WIDTH 13.4 % (9.0-15.0); WHITE BLOOD COUNT (AUTO) 9.4 K/uL (4.8-10.8)
[2024-03-06] MEDS: LIDOCAINE 1% 10 MG/ML, 20 ML MDV INJ ONE (19:10)
[2024-03-06] MEDS ORDERED: CLIN-142 PO (19:33)
[2024-03-06 19:46] LABS: CALCIUM 9.1 mg/dL (8.4-11.0); CREATININE 0.59 mg/dL (0.55-1.30); POTASSIUM 3.5 mmol/L (3.5-5.1)
[2024-03-06 20:13] VITALS: BP_SYST 119; PULSE 83; RESP 22; TEMP 99.6; O2SAT 96
[2024-03-06] MEDS: CLINDAMYCIN HCL 150 MG CAPSULE PO ONE (20:14)
[2024-03-06] MEDS: HYDROcodone/ACETAMIN 10-325 MG TAB PO ONE (20:15)
== END 2024-03-06 20:16 | disposition home or self-care (01) ==
LOC: SED 15:28
DX: L02.215 Cutaneous abscess of perineum (principal); J45.909 Unspecified asthma, uncomplicated; E11.9 Type 2 diabetes mellitus without complications; F41.9 Anxiety disorder, unspecified; Z23 Encounter for immunization; Z91.018 Allergy to other foods; Z79.899 Other long term (current) drug therapy; Z79.2 Long term (current) use of antibiotics
CPT/HCPCS: 36415; 80048; 83605; 85025; 90715; 96372; 99284; J1815; J2001

== ENCOUNTER 2024-04-01 04:30 | Emergency (ER) | payer BC, OTHER ==
[~2024-04-01] VITALS: Ht 170.2 cm; Wt 84.4 kg
[~2024-04-01 04:30] MED LIST changes: +CLIN-142 PO
[2024-04-01 04:37] VITALS: BP_SYST 113; PULSE 67; RESP 16; TEMP 97.5; O2SAT 97
[2024-04-01] MEDS: KETOROLAC TROMETHAMINE 60 MG/2 ML VIAL IM ONE (05:55)
[2024-04-01 06:08] VITALS: BP_SYST 124; PULSE 81; RESP 18
== END 2024-04-01 05:58 | disposition home or self-care (01) ==
LOC: SED 04:30
DX: S43.491A Other sprain of right shoulder joint, initial encounter (principal); J45.909 Unspecified asthma, uncomplicated; E11.9 Type 2 diabetes mellitus without complications; F41.9 Anxiety disorder, unspecified; Z90.49 Acquired absence of other specified parts of digestive tract; Z98.890 Other specified postprocedural states; Z98.51 Tubal ligation status; Z91.018 Allergy to other foods; Z79.899 Other long term (current) drug therapy; Z79.624 Long term (current) use of inhibitors of nucleotide synthesis; W22.8XXA Striking against or struck by other objects, initial encounter; Y93.89 Activity, other specified; Y92.89 Other specified places as the place of occurrence of the external cause; Y99.8 Other external cause status
CPT/HCPCS: 99283; 73030; 96372; J1885

== ENCOUNTER 2024-04-22 06:05 | Emergency (ER) | payer BC, OTHER ==
[~2024-04-22] VITALS: Ht 170.2 cm; Wt 84.8 kg
[2024-04-22 06:18] VITALS: BP_SYST 127; PULSE 77; RESP 20; TEMP 98; O2SAT 98
[2024-04-22 07:31] LABS: BASOPHILS # (AUTO) 0.1 K/uL (0.0-0.2); BASOPHILS % (AUTO) 0.8 % (0.0-2.0); EOSINOPHILS # (AUTO) 0.1 K/uL (0.0-0.4); EOSINOPHILS % (AUTO) 1.8 % (0.0-4.0); HEMATOCRIT 40.3 % (36-48); HEMOGLOBIN 13.5 g/dL (12.0-16.0); LYMPHOCYTES # (AUTO) 3.7 K/uL (1.0-5.5); LYMPHOCYTES % (AUTO) 46.5 % (20.5-51.5); MEAN CORPUSCULAR HEMOGLOBIN 28 pg (27-31); MEAN CORPUSCULAR HGB CONC 34 % (32-36); MEAN CORPUSCULAR VOLUME 85 fL (79.0-98.0); MONOCYTES # (AUTO) 0.5 K/uL (0.0-1.0); MONOCYTES % (AUTO) 6.1 % (1.7-9.3); NEUTROPHILS # (AUTO) 3.5 K/uL (1.8-7.7); NEUTROPHILS % (AUTO) 44.8 % (40.0-70.0); PLATELET COUNT (AUTO) 174 K/uL (130-430); RED BLOOD CELL COUNT(AUTO) 4.77 MIL/uL (4.2-6.2); RED CELL DISTRIBUTION WIDTH 13.4 % (9.0-15.0); WHITE BLOOD COUNT (AUTO) 7.8 K/uL (4.8-10.8)
[2024-04-22 07:48] LABS: ALBUMIN 3.4 g/dL (3.4-4.8); CALCIUM 9.5 mg/dL (8.4-11.0); CREATININE 0.77 mg/dL (0.55-1.30); POTASSIUM 4.3 mmol/L (3.5-5.1); TOTAL BILIRUBIN 0.3 mg/dL (0.0-1.0); TOTAL PROTEIN, SERUM 7.8 g/dL (6.4-8.3)
[2024-04-22 08:28] LABS: BILIRUBIN,URINE NEGATIVE (NEGATIVE); COLOR,URINE YELLOW (YELLOW); GLUCOSE,URINE 3+ (NEGATIVE); KETONES,URINE NEGATIVE (NEGATIVE); LEUKOCYTE ESTERASE ,URINE TRACE (NEGATIVE); NITRITE, URINE NEGATIVE (NEGATIVE); PROTEIN URINE NEGATIVE (NEGATIVE); UROBILINOGEN,URINE 0.2 (0.2-1.0)
[2024-04-22 08:34] LABS: BLOOD, URINE TRACE (NEGATIVE); CLARITY/URINE HAZY (CLEAR)
[2024-04-22 08:43] LABS: BACTERIA,URINE MODERATE /HPF (None Seen); MUCUS,URINE 1+ /LPF (None Seen)
[2024-04-22] MEDS ORDERED: NITR-85 PO (09:03)
[2024-04-22 09:51] VITALS: BP_SYST 127; PULSE 75; RESP 20; TEMP 98.2; O2SAT 98
== END 2024-04-22 09:54 | disposition home or self-care (01) ==
LOC: SED 06:05
DX: K92.1 Melena (principal); R10.30 Lower abdominal pain, unspecified; R82.71 Bacteriuria; E11.9 Type 2 diabetes mellitus without complications; J45.909 Unspecified asthma, uncomplicated; Z90.49 Acquired absence of other specified parts of digestive tract; Z98.51 Tubal ligation status; Z79.624 Long term (current) use of inhibitors of nucleotide synthesis; Z79.899 Other long term (current) drug therapy
CPT/HCPCS: 99285; 74177; 80053; 81001; 83690; 85025; 87086; 36415; Q9967; 81000; 81015